=== PATIENT | female | born 1935 | race Caucasian/White ===

== ENCOUNTER 2020-08-30 13:05 | Outpatient (REF) | payer MEDICARE, SELFPAY ==
[2020-08-30 14:02] LABS: Hematocrit 36.6 % (37-47); Mean Corpuscular HGB Conc 32.8 g/dl (31.0-35.0); Mean Corpuscular Hemoglobin 29.6 pg (27.0-33.0); Mean Corpuscular Volume 90.1 fL (80-98); Mean Platelet Volume 10.3 fL (9.4-12.3); Platelet Count 225 X10*3/uL (160-400); Red Blood Count 4.06 X10*6/uL (4.20-5.50); Red Cell Distribution Width 13.5 % (11.0-16.0); White Blood Count 4.3 X10*3/uL (4.8-10.8)
[2020-08-30 14:27] LABS: Osmolality, Serum 292 mosm/kg (281-305)
[2020-08-30 14:36] LABS: Alanine Aminotransferase 15 U/L (0-31); Albumin Level 4.3 g/dL (3.5-5.0); Alkaline Phosphatase 72 U/L (39-117); Anion Gap 11 (12-20); Aspartate Amino Transferase 28 U/L (5-31); Bilirubin Total 0.6 mg/dL (0.0-1.0); Blood Urea Nitrogen 13 mg/dL (9-16); Carbon Dioxide 29 mmol/L (22-29); Chloride 98 mmol/L (96-108); Estimated Glomerular Filt Rate > 60; Glucose Random 115 mg/dL (60-115); Sodium 134 mmol/L (135-145)
== END 2020-08-30 13:06 | disposition home or self-care (01) ==
LOC: HO.HMGCLDS 13:05
PROVIDERS: PCP Internal Medicine; Visit Provider Internal Medicine
DX: D72.819 Decreased white blood cell count, unspecified (principal); I10 Essential (primary) hypertension; E87.1 Hypo-osmolality and hyponatremia
CPT/HCPCS: 36415; 80053; 83930; 85027

== ENCOUNTER 2020-10-10 10:26 | Outpatient (REF) | payer MEDICARE, SELFPAY ==
[2020-10-10 16:28] LABS: Albumin Level 4.2 g/dL (3.5-5.0); Anion Gap 12 (12-20); Blood Urea Nitrogen 20 mg/dL (9-16); Calcium 8.8 mg/dL (8.4-10.2); Carbon Dioxide 29 mmol/L (22-29); Chloride 99 mmol/L (96-108); Estimated Glomerular Filt Rate 60; Magnesium 2.2 mg/dL (1.6-2.6); Phosphorus 3.4 mg/dL (2.7-4.5); Potassium 4.7 mmol/l (3.3-5.1); Sodium 135 mmol/L (135-145); Uric Acid 3.7 mg/dL (2.4-5.7)
[2020-10-10 16:33] LABS: Osmolality, Serum 290 mosm/kg (281-305)
[2020-10-10 16:48] LABS: TSH reflex Free T4 1.94 mIU/mL (0.32-4.0)
[2020-10-10 16:55] LABS: Appearance Urine CLEAR; Color Urine YELLOW; Glucose Urine UA NEG (NEG); Leukocyte Esterase Urine NEG (NEG); Nitrite Urine NEG (NEG); Specific Gravity - Urine 1.015 (1.005-1.025); Urine Blood TRACE (NEG); Urine Ketones NEG (NEG); Urine Protein NEG (NEG-TRACE)
[2020-10-10 17:09] LABS: Osmolality Urine 504 mosm/kg (373-1093)
[2020-10-10 17:14] LABS: WBC Urine 0 /HPF (0-4)
[2020-10-10 18:46] LABS: Renal w Reflex Lab Use Only Order verified
== END 2020-10-10 10:27 | disposition home or self-care (01) ==
LOC: HO.HMGCLDS 10:26
PROVIDERS: PCP Internal Medicine; Visit Provider Internal Medicine Nephrology
DX: E87.1 Hypo-osmolality and hyponatremia (principal); I10 Essential (primary) hypertension
CPT/HCPCS: 80051; 81001; 82040; 82310; 82533; 82565; 83735; 83930; 83935; 84100; 84300; 84443; 84520; 84550

== ENCOUNTER 2021-02-13 12:26 | Outpatient (REF) | payer MEDICARE, SELFPAY ==
--- NOTE | ~2021-02-13 | MM_ITS ---
EXAMINATION: MM SCREENING DIGITAL BREAST TOMOSYNTHESIS, BILATERAL CLINICAL INFORMATION: Screening. Asymptomatic. The lifetime risk of breast cancer based on the Tyrer-Cuzick Model is 1%. COMPARISON: Mammography: 11/13/2019, 10/13/2018, 08/16/2017 TECHNIQUE: Digital breast tomosynthesis is performed in both the craniocaudal and mediolateral oblique views along with computer-aided detection (CAD). Synthesized 2D images are generated from the tomosynthesis. FINDINGS: The breasts are heterogeneously dense, which may obscure small masses (ACR BI-RADS breast composition Category c). There are no significant masses, abnormal calcifications, or other abnormalities. There are bilateral vascular and some scattered round coarse calcifications. Dermal lesion is again noted overlying the posterior upper outer left breast. MM/MM tomosynthesis screening BI IMPRESSION: No mammographic evidence of malignancy. ASSESSMENT: BI-RADS 2: Benign RECOMMENDATION: Routine annual mammography screening. This patient's information was entered into a reminder system with a target due date for their next mammogram.
== END 2021-02-13 12:27 | disposition home or self-care (01) ==
LOC: HO.MAMMO 12:26
PROVIDERS: Visit Provider Internal Medicine
DX: Z12.31 Encounter for screening mammogram for malignant neoplasm of breast (principal)
CPT/HCPCS: 77063; 77067

== ENCOUNTER 2021-02-15 10:27 | Outpatient (REF) | payer MEDICARE, SELFPAY ==
[2021-02-15 12:13] LABS: Anion Gap 13 (12-20); Blood Urea Nitrogen 22 mg/dL (9-16); Calcium 9.6 mg/dL (8.4-10.2); Carbon Dioxide 27 mmol/L (22-29); Chloride 96 mmol/L (96-108); Estimated Glomerular Filt Rate > 60; Phosphorus 4.4 mg/dL (2.7-4.5); Potassium 4.7 mmol/L (3.3-5.1); Sodium 131 mmol/L (135-145)
[2021-02-15 12:21] LABS: Renal w Reflex Lab Use Only Order verified
== END 2021-02-15 10:28 | disposition home or self-care (01) ==
LOC: HO.HMGCLR 10:27
PROVIDERS: PCP Internal Medicine; Visit Provider Internal Medicine Nephrology
DX: E87.1 Hypo-osmolality and hyponatremia (principal); I10 Essential (primary) hypertension
CPT/HCPCS: 36415; 80051; 82310; 82565; 84100; 84520

== ENCOUNTER 2021-05-12 09:32 | Outpatient (REF) | payer MEDICARE, SELFPAY ==
[2021-05-12 11:31] LABS: MANUAL DIFF FLAG NO
[2021-05-12 11:35] LABS: Basophils Absolute Auto 0.1 X10*3/uL (0.0-0.2); Basophils Percent Auto 1.2 % (0-2); Eosinophils Absolute Auto 0.1 X10*3/uL (0.0-0.4); Hemoglobin 11.3 g/dl (12.0-16.0); Imm Gran Abs Auto 0.01 X10*3/uL (0.00-0.03); Imm Gran Pct Auto 0.2 % (0.0-0.4); Lymphocytes Absolute Auto 1.2 X10*3/uL (1.2-4.9); Lymphocytes Percent Auto 29.8 % (20-40); Mean Corpuscular HGB Conc 32.3 g/dl (31.0-35.0); Mean Corpuscular Hemoglobin 28.6 pg (27.0-33.0); Mean Corpuscular Volume 88.6 fL (80-98); Monocytes Absolute Auto 0.3 X10*3/uL (0.1-1.2); Monocytes Percent Auto 6.4 % (2-11); Neutrophils Absolute Auto 2.5 X10*3/uL (2.0-8.3); Neutrophils Percent Auto 60.4 % (45-73); Platelet Count 189 X10*3/uL (160-400); Red Blood Count 3.95 X10*6/uL (4.20-5.50); Red Cell Distribution Width 13.3 % (11.0-16.0); White Blood Count 4.1 X10*3/uL (4.8-10.8)
[2021-05-12 11:51] LABS: Anion Gap 12 (12-20); Blood Urea Nitrogen 17 mg/dL (9-16); Calcium 9.5 mg/dL (8.4-10.2); Carbon Dioxide 25 mmol/L (22-29); Chloride 99 mmol/L (96-108); Estimated Glomerular Filt Rate > 60; Potassium 4.3 mmol/L (3.3-5.1); Sodium 132 mmol/L (135-145)
[2021-05-12 15:40] LABS: Glucose Urine UA NEG (NEG); Leukocyte Esterase Urine 1+ (NEG); Nitrite Urine NEG (NEG); Urine Blood NEG (NEG); Urine Ketones NEG (NEG); Urine Protein NEG (NEG-TRACE)
[2021-05-12 15:42] LABS: Appearance Urine CLEAR; Color Urine YELLOW
[2021-05-12 16:02] LABS: Bacteria Urine TRACE /LPF; Renal Epithelial Cells Urine TRACE /LPF; Squamous Epithelial Cell Urine TRACE /LPF
== END 2021-05-12 09:33 | disposition home or self-care (01) ==
LOC: HO.HMGCLDS 09:32
PROVIDERS: PCP Internal Medicine; Visit Provider Internal Medicine Hypertension Specialist
DX: N18.30 Chronic kidney disease, stage 3 unspecified (principal); N17.9 Acute kidney failure, unspecified
CPT/HCPCS: 36415; 80051; 81001; 82310; 82565; 84520; 85025

== ENCOUNTER 2021-06-07 09:57 | Outpatient (REF) | payer MEDICARE, SELFPAY ==
--- NOTE | ~2021-06-07 | US_ITS ---
EXAMINATION: US RETROPERITONEAL LIMITED (RENAL ONLY) CLINICAL INFORMATION: CKD stage 2. COMPARISON: Ultrasound kidneys 09/07/2019. Ultrasound kidneys and bladder 08/22/2018. X-ray abdomen 12/05/2015. CT abdomen and pelvis 12/04/2015. TECHNIQUE: Real-time imaging of the kidneys. FINDINGS: RIGHT KIDNEY: 11.6 x 4.3 x 4.9 cm (SAG x AP x TRV). The kidney is normal in size, contour, and echogenicity. Renal cortical thickness is normal. No renal calculi or hydronephrosis. There is anechoic cyst in the upper pole measuring 2.2 x 3.5 x 2.3 cm LEFT KIDNEY: 11.0 x 4.8 x 4.4 cm (SAG x AP x TRV). The kidney is normal in size, contour, and echogenicity. Renal cortical thickness is normal. No renal calculi or hydronephrosis. There is a complex cyst upper pole with echogenic debris measuring 4.0 x 3.6 x 4.3 cm. An extrarenal kidney pelvis is noted. US/US renal BI IMPRESSION: There is anechoic cyst in the upper pole right kidney and mild caliectasis. Complex cyst upper pole left kidney. There is an extrarenal left kidney pelvis.
== END 2021-06-07 09:58 | disposition home or self-care (01) ==
LOC: HO.HMGCX 09:57
PROVIDERS: PCP Internal Medicine; Visit Provider Internal Medicine Nephrology
DX: E87.1 Hypo-osmolality and hyponatremia (principal); I12.9 Hypertensive chronic kidney disease with stage 1 through stage 4 chronic kidney disease, or unspecified chronic kidney disease; N18.2 Chronic kidney disease, stage 2 (mild)
CPT/HCPCS: 76775

== ENCOUNTER 2021-10-12 15:01 | Outpatient (REF) | payer MEDICARE, SELFPAY ==
[2021-10-12 16:53] LABS: Anion Gap 11 (12-20); Blood Urea Nitrogen 21 mg/dL (9-16); Calcium 9.3 mg/dL (8.4-10.2); Carbon Dioxide 27 mmol/L (22-29); Chloride 100 mmol/L (96-108); Estimated Glomerular Filt Rate > 60; Potassium 4.4 mmol/L (3.3-5.1); Sodium 134 mmol/L (135-145)
== END 2021-10-12 15:02 | disposition home or self-care (01) ==
LOC: HO.HMGCLDS 15:01
PROVIDERS: PCP Internal Medicine; Visit Provider Internal Medicine Nephrology
DX: I12.9 Hypertensive chronic kidney disease with stage 1 through stage 4 chronic kidney disease, or unspecified chronic kidney disease (principal); E87.1 Hypo-osmolality and hyponatremia; N18.2 Chronic kidney disease, stage 2 (mild)
CPT/HCPCS: 36415; 80051; 82310; 82565; 84520

== ENCOUNTER 2021-12-11 10:52 | Outpatient (REF) | payer MEDICARE, SELFPAY ==
--- NOTE | ~2021-12-11 | US_ITS ---
EXAMINATION: US RETROPERITONEAL LIMITED (RENAL ONLY) CLINICAL INFORMATION: Renal cyst. COMPARISON: Renal ultrasound 06/07/2021 and 09/07/2019. TECHNIQUE: Real-time imaging of the kidneys. Technically difficult study secondary to body habitus. FINDINGS: RIGHT KIDNEY: 11.3 x 3.8 x 5.1 cm (SAG x AP x TRV). The kidney is normal in size, contour, and echogenicity. Renal cortical thickness is normal. No renal calculi. There is an anechoic cyst in the upper pole measuring 2.2 x 2.5 x 2.5 cm. There is hydronephrosis and hydroureter involving the proximal and mid ureter with no echogenic stones seen in the ureter. LEFT KIDNEY: 11.3 x 4.6 x 4.8 cm (SAG x AP x TRV). The kidney is normal in size, contour, and echogenicity. Renal cortical thickness is normal. No renal calculi or hydronephrosis. There is an anechoic cyst with septation in the upper pole measuring 4.2 x 4.6 x 4.2 cm. There is no extrarenal kidney pelvis seen. ADDITIONAL FINDINGS: There are normal bilateral ureteral jets seen in the bladder. US/US renal BI IMPRESSION: Moderate right renal hydronephrosis and hydroureter with no obstructive echogenic stones seen on the present images. Anechoic cyst with septation upper pole left kidney. There is an extrarenal pelvis seen on the present exam.
== END 2021-12-11 10:53 | disposition home or self-care (01) ==
LOC: HO.US 10:52
PROVIDERS: Visit Provider Internal Medicine
DX: N28.1 Cyst of kidney, acquired (principal)
CPT/HCPCS: 76775

== ENCOUNTER 2021-12-19 14:07 | Outpatient (REF) | payer MEDICARE, SELFPAY ==
[2021-12-19 16:44] LABS: Anion Gap 10 (12-20); Blood Urea Nitrogen 14 mg/dL (9-16); Calcium 9.7 mg/dL (8.4-10.2); Carbon Dioxide 30 mmol/L (22-29); Chloride 99 mmol/L (96-108); Estimated Glomerular Filt Rate 60; Potassium 4.2 mmol/L (3.3-5.1); Sodium 135 mmol/L (135-145)
== END 2021-12-19 14:08 | disposition home or self-care (01) ==
LOC: HO.HMGCLDS 14:07
PROVIDERS: Visit Provider Internal Medicine Nephrology
DX: E87.1 Hypo-osmolality and hyponatremia (principal); I10 Essential (primary) hypertension; N18.2 Chronic kidney disease, stage 2 (mild)
CPT/HCPCS: 36415; 80051; 82310; 82565; 84520

== ENCOUNTER 2022-02-14 12:56 | Outpatient (REF) | payer MEDICARE, SELFPAY ==
--- NOTE | ~2022-02-14 | MM_ITS ---
EXAMINATION: MM SCREENING DIGITAL BREAST TOMOSYNTHESIS, BILATERAL CLINICAL INFORMATION: Screening. Asymptomatic. The lifetime risk of breast cancer based on the Tyrer-Cuzick Model is 820%. COMPARISON: Mammography: 02/13/2021, 11/13/2019, 10/13/2018 TECHNIQUE: Digital breast tomosynthesis is performed in both the craniocaudal and mediolateral oblique views along with computer-aided detection (CAD). Synthesized 2D images are generated from the tomosynthesis. Additional right MLO view is provided. FINDINGS: The breasts are heterogeneously dense, which may obscure small masses (ACR BI-RADS breast composition Category c). There are no significant masses, abnormal calcifications, or other abnormalities. There is a fibronodular parenchymal pattern similar to prior studies. Scattered vascular calcifications are again seen. There is digital processing artifact in the anterior right breast on MLO synthesized view. Dermal lesion again seen overlying posterior upper left breast. There are no significant changes. MM/MM tomosynthesis screening BI IMPRESSION: No mammographic evidence of malignancy. ASSESSMENT: BI-RADS 2: Benign RECOMMENDATION: Routine annual mammography screening. This patient's information was entered into a reminder system with a target due date for their next mammogram.
== END 2022-02-14 12:57 | disposition home or self-care (01) ==
LOC: HO.MAMMO 12:56
PROVIDERS: PCP Internal Medicine; Visit Provider Internal Medicine
DX: Z12.31 Encounter for screening mammogram for malignant neoplasm of breast (principal)
CPT/HCPCS: 77063; 77067

== ENCOUNTER 2022-06-25 09:39 | Outpatient (REF) | payer MEDICARE, SELFPAY ==
[2022-06-25 11:26] LABS: Appearance Urine Clear; Color Urine Yellow; Glucose Urine UA Negative (Negative); Leukocyte Esterase Urine Trace (Negative); Nitrite Urine Negative (Negative); Urine Blood Trace (Negative); Urine Ketones Negative (Negative); Urine Protein Negative (Neg-Trace)
[2022-06-25 11:30] LABS: Bacteria Urine None Seen (None Seen); Hyaline Casts Urine 0-2 /LPF (0-2); Squamous Epithelial Cell Urine 0-2 /HPF (0-2); WBC Urine 0-5 /HPF (0-5)
[2022-06-25 11:56] LABS: Anion Gap 13 (12-20); Blood Urea Nitrogen 12 mg/dL (9-16); Calcium 9.2 mg/dL (8.4-10.2); Carbon Dioxide 27 mmol/L (22-29); Chloride 96 mmol/L (96-108); Estimated Glomerular Filt Rate > 60; Potassium 4.4 mmol/L (3.3-5.1); Sodium 132 mmol/L (135-145)
[2022-06-25 12:11] LABS: Creatinine Urine 31.69 mg/dL; Microalbum/Creatinine Ratio Ur 28.4 ug/mg cr; Total Protein Urine Random < 7 mg/dL (<12)
== END 2022-06-25 09:40 | disposition home or self-care (01) ==
LOC: HO.HMGCLDS 09:39
PROVIDERS: PCP Internal Medicine; Visit Provider Internal Medicine Nephrology
DX: E87.1 Hypo-osmolality and hyponatremia (principal); I12.9 Hypertensive chronic kidney disease with stage 1 through stage 4 chronic kidney disease, or unspecified chronic kidney disease; N18.2 Chronic kidney disease, stage 2 (mild)
CPT/HCPCS: 36415; 80051; 81001; 82043; 82310; 82565; 84156; 84520

== ENCOUNTER 2022-09-24 13:35 | Outpatient (REF) | payer MEDICARE, SELFPAY ==
[2022-09-24 16:34] LABS: Anion Gap 13 (12-20); Blood Urea Nitrogen 12 mg/dL (9-16); Calcium 9.5 mg/dL (8.4-10.2); Carbon Dioxide 29 mmol/L (22-29); Chloride 96 mmol/L (96-108); Estimated Glomerular Filt Rate > 60; Glucose Random 74 mg/dL (60-115); Sodium 134 mmol/L (135-145)
== END 2022-09-24 13:36 | disposition home or self-care (01) ==
LOC: HO.HMGCLDS 13:35
PROVIDERS: PCP Internal Medicine; Visit Provider Internal Medicine
DX: E87.1 Hypo-osmolality and hyponatremia (principal)
CPT/HCPCS: 36415; 80048

== ENCOUNTER 2022-11-04 12:05 | Observation (INO) | payer MEDICARE, SELFPAY ==
--- NOTE | ~2022-11-04 | CT_ITS ---
EXAMINATION: CT ANGIOGRAM NECK WITH CONTRAST CT ANGIOGRAM BRAIN WITH CONTRAST CLINICAL INFORMATION: 2 episodes of transient neurologic deficit. COMPARISON: Head CT November 04, 2022. TECHNIQUE: Test bolus sequences followed by intravenous administration 100 mL of Omnipaque 350. Helical imaging was performed in the axial plane from the thoracic inlet to the skull vertex. Delayed postcontrast imaging of the head was also performed. The data was processed at the extractions technologist workstation for generation of MIP sequences. Angled MIPs and volume rendered reformatted images were also generated at an offline 3D workstation. Stenoses are assessed in accordance with NASCET criteria unless otherwise indicated. This CT examination was performed using dose optimization techniques as appropriate, variously including the following: *Automated exposure control *Adjustment of mA and/or kV according to patient size (this includes techniques or standardized protocols for targeted exams where dose is matched to indication/reason for exam; i.e. extremities or head) *Use of iterative reconstruction technique DLP: 1443 mGy-cm FINDINGS: Head CT: There is no intracranial hemorrhage, extra-axial collection, mass effect, or territorial infarction. Background changes of moderate chronic microangiopathy and mild brain parenchymal volume loss are noted. There is no abnormal enhancement. The dural venous sinuses are normally opacified. The extracranial structures are within normal limits. Neck CTA: The visualized great vessels are patent. Atheromatous changes are seen at the carotid bifurcations without significant stenosis of the proximal internal carotid arteries. 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 Both vertebral arteries appear patent although reflux of venous contrast limits evaluation of the right-sided vertebral artery. Head CTA: The anterior and posterior circulations appear patent. There is -type disposition of both hematology technologist. No intracranial aneurysm is seen. Non-vascular findings: No consolidation is seen within the upper lungs. There is a left chest wall pacemaker. Multilevel degenerative changes are seen within the spine. Advanced degenerative changes are seen at the temporomandibular joints. CT/CT angio head neck IMPRESSION: CT HEAD: No intracranial hemorrhage or large acute infarction. Background changes of chronic microangiopathy. CTA NECK: No hemodynamically significant stenosis in the major arteries of the neck. 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 CTA HEAD: No large vessel occlusion or significant stenosis within the intracranial circulation.
--- NOTE | ~2022-11-04 | CT_ITS ---
EXAMINATION: CT HEAD WITHOUT CONTRAST CLINICAL INFORMATION: Visual changes, dizziness since yesterday 4:00 PM. COMPARISON: None. TECHNIQUE: Contiguous axial imaging was performed from the skull base to vertex without intravenous administration of contrast. This CT examination was performed using dose optimization techniques as appropriate, variously including the following: *Automated exposure control *Adjustment of mA and/or kV according to patient size (this includes techniques or standardized protocols for targeted exams where dose is matched to indication/reason for exam; i.e. extremities or head) *Use of iterative reconstruction technique DLP: 631 mGy-cm. FINDINGS: There is no intracranial hemorrhage, large infarction, or mass lesion. There is no extra-axial collection. The ventricles are normal in size and configuration without evidence of hydrocephalus. Patchy hypoattenuation is seen within the cerebral white matter, typical of chronic microangiopathy. The visualized paranasal sinuses and mastoid air cells are clear. CT/CT head/brain wo IV con IMPRESSION: No acute intracranial abnormality.
--- NOTE | ~2022-11-04 | XR_ITS ---
EXAMINATION: XR CHEST CLINICAL INFORMATION: Visualized changes. Difficulty with words. COMPARISON: Chest x-rays every 2015 TECHNIQUE: 2 views of the chest were obtained. FINDINGS: Cardiac silhouette is normal in size. Dual-lead pacemaker noted. The lungs are hyperinflated. No gross lobar consolidation. No pleural effusion or pneumothorax. Moderate degenerative changes of the spine. Partially visualized hardware of the spine. XR/XR chest 2V IMPRESSION: Emphysematous changes of the lungs without acute pulmonary pathology.
--- NOTE | 2022-11-04 12:10 | ED_ITS ---
HPI - General Adult General Chief complaint: Neuro Symptoms/Deficit Stated complaint: Not Feeling Well Time Seen by Provider: 11/04/22 12:37 Related Data Home Medications Medication Instructions Recorded Confirmed acetaminophen 325 mg tablet 650 mg PO Q4H PRN Pain 11/04/22 11/04/22 apixaban 2.5 mg tablet (Eliquis) 1 tab PO BID 11/04/22 11/04/22 calcium carbonate 600 mg-vitamin 1 tab PO DAILY 11/04/22 11/04/22 D3 10 mcg (400 unit) tablet (Calcium 600 + D(3)) cholecalciferol (vitamin D3) 25 25 mcg PO DAILY 11/04/22 11/04/22 mcg (1,000 unit) capsule (Vitamin D3) multivitamin 1 tab PO QAM 11/04/22 11/04/22 pantoprazole 40 mg tablet,delayed 1 tab PO BID 11/04/22 11/04/22 release polyethylene glycol 3350 17 gram 17 g PO DAILY 11/04/22 11/04/22 oral powder packet (Miralax) pramipexole 0.125 mg tablet 1 tab PO BEDTIME 11/04/22 11/04/22 sennosides 8.6 mg tablet (senna) 17.2 mg PO BEDTIME 11/04/22 11/04/22 tamsulosin 0.4 mg capsule 1 cap PO BEDTIME 11/04/22 11/04/22 Previous Rx's Medication Instructions Recorded atorvastatin 40 mg tablet 40 mg PO BEDTIME #30 tabs 11/07/22 Allergies Allergy/AdvReac Type Severity Reaction Status Date / Time No Known Allergies Allergy Unverified 07/14/20 15:16 [No Known Allergies*] [facility] Social History Social History (Updated 11/04/22 @ 17:05 by Gene Trent MD) Household Members: None Housing: House Do you presently have visiting nurse or other home services: No Alcohol intake: never Patient Tobacco Use Status: Never used Tobacco service: No Physical Exam ED Vital Signs: BMI result Body Mass Index 24.7 Course Course Course Narrative: RME-12:10PM - 87yo c 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 Reports that she was at mass doing the 1st reading and all of a sudden her vision change and she saw everything dark she reports that lasted a few seconds and she was able to read. Although this morning and happen again. She reports associated excessive burping. On Exam pt hypertensive 171/112. She is Alert to person, place and time. Cant not remember the president. Noted to have mild right facial droop although patient recently had right facial surgery therefore hard to tell and 4/5 strength to RUE. Otherwise normal strength all other extremities. Normal steady gait. Otherwise no other neuro deficits are noted. Plan: Labs, EKG, COVID/RSV/flu, chest x-ray and CT scan of brain without contrast ordered at this time. Medications Administered Discontinued Medications Generic Name Dose Route Start Last Admin Trade Name Obey PRN Reason Stop Dose Admin Amlodipine Besylate 5 mg 11/04/22 16:25 11/04/22 17:19 Amlodipine Besylate 5 Mg Tablet PO 11/04/22 16:26 5 mg ONCE ONE Administration Protocol Apixaban 2.5 mg 11/04/22 21:00 11/07/22 08:10 Apixaban 2.5 Mg Tablet PO 2.5 mg BID TRACIE Administration Aspirin 81 mg 11/04/22 16:25 11/04/22 17:19 Aspirin Enteric Coated 81 Mg Tablet.Dr FIORE 11/04/22 16:26 81 mg ONCE ONE Administration Aspirin 81 mg 11/06/22 09:00 11/07/22 08:09 Aspirin Enteric Coated 81 Mg Tablet.Dr FIORE 81 mg DAILY TRACIE Administration Iohexol 100 ml 11/05/22 17:55 11/05/22 17:56 Iohexol 350 Mg/Ml 100 Ml Infus..Btl IV 11/05/22 17:56 70 ml ONCE ONE Administration Multivitamins/Vitamin C 1 tab 11/05/22 09:00 11/07/22 08:10 Multivitamin Tablet PO 1 tab DAILY TRACIE Administration Omeprazole 40 mg 11/05/22 16:30 11/07/22 06:09 Omeprazole 40 Mg Capsule.Dr FIORE 40 mg BID@0630,1630 TRACIE Administration Polyethylene Glycol 17 gm 11/05/22 09:00 11/07/22 08:10 Polyethylene Glycol 3350 17 Gm Powd.Pack PO 17 gm DAILY TRACIE Administration Pramipexole Dihydrochloride 0.125 mg 11/04/22 21:00 11/06/22 20:15 Pramipexole Di-Hcl 0.125 Mg Tablet PO 0.125 mg BEDTIME TRACIE Administration Senna 17.2 mg 11/05/22 21:00 11/06/22 20:15 Sennosides 8.6 Mg Tablet PO 17.2 mg BEDTIME TRACIE Administration Sodium Chloride 3 ml 11/05/22 00:00 11/07/22 08:10 0.9 % Sodium Chloride Flush 3 Ml Syringe IVFLUSH 3 ml QSHIFT TRACIE Administration Tamsulosin HCl 0.4 mg 11/04/22 21:00 11/06/22 20:15 Tamsulosin Hcl 0.4 Mg Capsule PO 0.4 mg BEDTIME TRACIE Administration Vitamin D 25 mcg 11/05/22 09:00 11/07/22 08:10 Cholecalciferol (Vitamin D3) 25 Mcg Tablet PO 25 mcg DAILY TRACIE Administration Medical Decision Making Lab Data 11/04/22 12:35 11/04/22 12:35 Labs: Lab Results 11/04/22 11/04/22 11/04/22 Range/Units 12:35 12:35 12:35 WBC 5.0 (4.8-10.8) X10*3/uL RBC 4.31 (4.20-5.50) X10*6/uL Hgb 12.6 (12.0-16.0) g/dl Hct 37.4 (37.0-47.0) % MCV 86.8 (80.0-98.0) fL MCH 29.2 (27.0-33.0) pg MCHC 33.7 (31.0-35.0) g/dl RDW 13.1 (11.0-16.0) % Plt Count 247 (160-400) X10*3/uL MPV 9.4 (9.4-12.3) fL Immature Gran % (Auto) 0.4 (0.0-0.4) % Neut % (Auto) 77.4 H (45-73) % Lymph % (Auto) 14.3 L (20-40) % [place] % (Auto) 6.1 (2-11) % Eos % (Auto) 0.6 (0-4) % Baso % (Auto) 1.2 (0-2) % Lymph # (Auto) 0.7 L (1.2-4.9) X10*3/uL [place] # (Auto) 0.3 (0.1-1.2) X10*3/uL Eos # (Auto) 0.0 (0.0-0.4) X10*3/uL Baso # (Auto) 0.1 (0.0-0.2) X10*3/uL Abs Immat Gran (auto) 0.02 (0.00-0.03) X10*3/uL Absolute Neuts (auto) 3.8 (2.0-8.3) x10*3/uL Absolute Nucleated RBC 0.000 (0.0-0.012) X10*3/uL Nucleated RBC % (auto) 0.0 (0.0-0.2) /100WBC PT 11.4 (10.0-13.1) SEC INR 1.0 (0.9-1.1) Sodium 135 (135-145) mmol/L Potassium 3.9 (3.3-5.1) mmol/L Chloride 101 (96-108) mmol/L Carbon Dioxide 25 (22-29) mmol/L Anion Gap 13 (12-20) BUN 12 (9-16) mg/dL Creatinine 0.77 (0.5-1.4) mg/dL Estim Creat Clear Calc 42.4 Estimated GFR > 60 Random Glucose 105 (60-115) mg/dL Calcium 9.9 (8.4-10.2) mg/dL Magnesium 1.9 (1.6-2.6) mg/dL Total Bilirubin 0.4 (0.0-1.0) mg/dL AST 27 (5-31) U/L ALT 17 (0-31) U/L Alkaline Phosphatase 85 (39-117) U/L Troponin I High Sens (<3.5-17.0) ng/L Total Protein 7.2 (6.5-8.0) g/dL Albumin 4.4 (3.5-5.0) g/dL Urine Color Urine Appearance Urine pH (5.0-9.0) Ur Specific [place] (1.005-1.025) Urine Protein (Neg-Trace) mg/dL Urine Glucose (UA) (Negative) mg/dL Urine Ketones (Negative) mg/dL Urine Blood (Negative) Urine Nitrite (Negative) Ur Leukocyte Esterase (Negative) Urine RBC (0-2) /HPF Urine WBC (0-5) /HPF Ur Squamous Epith Cells (0-2) /HPF Urine Bacteria (None Seen) Hyaline Casts (0-2) /LPF Influenza Type A (PCR) (Negative) Influenza Type B (PCR) (Negative) RSV RNA Qual (PCR) (Negative) SARS-CoV-2 RNA (RT-PCR) (Negative) 11/04/22 11/04/22 11/04/22 Range/Units 12:35 12:35 13:50 WBC (4.8-10.8) X10*3/uL RBC (4.20-5.50) X10*6/uL Hgb (12.0-16.0) g/dl Hct (37.0-47.0) % MCV (80.0-98.0) fL MCH (27.0-33.0) pg MCHC (31.0-35.0) g/dl RDW (11.0-16.0) % Plt Count (160-400) X10*3/uL MPV (9.4-12.3) fL Immature Gran % (Auto) (0.0-0.4) % Neut % (Auto) (45-73) % Lymph % (Auto) (20-40) % [place] % (Auto) (2-11) % Eos % (Auto) (0-4) % Baso % (Auto) (0-2) % Lymph # (Auto) (1.2-4.9) X10*3/uL [place] # (Auto) (0.1-1.2) X10*3/uL Eos # (Auto) (0.0-0.4) X10*3/uL Baso # (Auto) (0.0-0.2) X10*3/uL Abs Immat Gran (auto) (0.00-0.03) X10*3/uL Absolute Neuts (auto) (2.0-8.3) x10*3/uL Absolute Nucleated RBC (0.0-0.012) X10*3/uL Nucleated RBC % (auto) (0.0-0.2) /100WBC PT (10.0-13.1) SEC INR (0.9-1.1) Sodium (135-145) mmol/L Potassium (3.3-5.1) mmol/L Chloride (96-108) mmol/L Carbon Dioxide (22-29) mmol/L Anion Gap (12-20) BUN (9-16) mg/dL Creatinine (0.5-1.4) mg/dL Estim Creat Clear Calc Estimated GFR Random Glucose (60-115) mg/dL Calcium (8.4-10.2) mg/dL Magnesium (1.6-2.6) mg/dL Total Bilirubin (0.0-1.0) mg/dL AST (5-31) U/L ALT (0-31) U/L Alkaline Phosphatase (39-117) U/L Troponin I High Sens < 3.5 (<3.5-17.0) ng/L Total Protein (6.5-8.0) g/dL Albumin (3.5-5.0) g/dL Urine Color Yellow Urine Appearance Clear Urine pH 7.5 (5.0-9.0) Ur Specific [place] <= 1.005 (1.005-1.025) Urine Protein Negative (Neg-Trace) mg/dL Urine Glucose (UA) Negative (Negative) mg/dL Urine Ketones Negative (Negative) mg/dL Urine Blood Trace H (Negative) Urine Nitrite Negative (Negative) Ur Leukocyte Esterase Trace H (Negative) Urine RBC 3-5 H (0-2) /HPF Urine WBC 0-5 (0-5) /HPF Ur Squamous Epith Cells 0-2 (0-2) /HPF Urine Bacteria None Seen (None Seen) Hyaline Casts 0-2 (0-2) /LPF Influenza Type A (PCR) NEGATIVE (Negative) Influenza Type B (PCR) NEGATIVE (Negative) RSV RNA Qual (PCR) NEGATIVE (Negative) SARS-CoV-2 RNA (RT-PCR) NEGATIVE (Negative) Discharge Plan Discharge Clinical Impression: TIA (transient ischemic attack) Patient Disposition: Admitted As Inpatient Interventions: Admission Worksheet (ED) Last Done: 11/05/22 08:58 Discharge Date/Time: 11/05/22 08:59
[2022-11-04 12:11] VITALS: BP 171/112; PULSE 96; RESP 16; TEMP 36.4; O2SAT 97; BMI 24.7
--- NOTE | 2022-11-04 12:15 | ECG_ITS ---
Test Reason : AMS Blood Pressure : / mmHG Vent. Rate : 076 BPM Atrial Rate : 076 BPM P-R Int : 138 ms QRS Dur : 128 ms QT Int : 416 ms P-R-T Axes : 041 004 024 degrees QTc Int : 468 ms Normal sinus rhythm Right bundle branch block Abnormal ECG No previous ECGs available Referred By: Lila Ho Electronically Signed By:Dannie Abernathy
[2022-11-04 12:40] LABS: MANUAL DIFF FLAG NO
[2022-11-04 12:42] LABS: Basophils Absolute Auto 0.1 X10*3/uL (0.0-0.2); Basophils Percent Auto 1.2 % (0-2); Eosinophils Percent Auto 0.6 % (0-4); Hematocrit 37.4 % (37.0-47.0); Hemoglobin 12.6 g/dl (12.0-16.0); Imm Gran Abs Auto 0.02 X10*3/uL (0.00-0.03); Imm Gran Pct Auto 0.4 % (0.0-0.4); Lymphocytes Absolute Auto 0.7 X10*3/uL (1.2-4.9); Lymphocytes Percent Auto 14.3 % (20-40); Mean Corpuscular HGB Conc 33.7 g/dl (31.0-35.0); Mean Corpuscular Hemoglobin 29.2 pg (27.0-33.0); Mean Corpuscular Volume 86.8 fL (80.0-98.0); Mean Platelet Volume 9.4 fL (9.4-12.3); Monocytes Absolute Auto 0.3 X10*3/uL (0.1-1.2); Monocytes Percent Auto 6.1 % (2-11); Neutrophils Absolute Auto 3.8 x10*3/uL (2.0-8.3); Neutrophils Percent Auto 77.4 % (45-73); Platelet Count 247 X10*3/uL (160-400); Red Blood Count 4.31 X10*6/uL (4.20-5.50); Red Cell Distribution Width 13.1 % (11.0-16.0)
[2022-11-04 12:47] LABS: Prothrombin Time 11.4 SEC (10.0-13.1)
[2022-11-04 12:57] LABS: Alanine Aminotransferase 17 U/L (0-31); Albumin Level 4.4 g/dL (3.5-5.0); Alkaline Phosphatase 85 U/L (39-117); Anion Gap 13 (12-20); Aspartate Amino Transferase 27 U/L (5-31); Bilirubin Total 0.4 mg/dL (0.0-1.0); Blood Urea Nitrogen 12 mg/dL (9-16); Calcium 9.9 mg/dL (8.4-10.2); Carbon Dioxide 25 mmol/L (22-29); Chloride 101 mmol/L (96-108); Creatinine Clr Calc Pharmacy 42.4; Estimated Glomerular Filt Rate > 60; Glucose Random 105 mg/dL (60-115); Magnesium 1.9 mg/dL (1.6-2.6); Potassium 3.9 mmol/L (3.3-5.1); Sodium 135 mmol/L (135-145); Total Protein 7.2 g/dL (6.5-8.0)
[2022-11-04 13:04] LABS: Troponin-I High Sensitivity < 3.5 ng/L (<3.5-17.0)
[2022-11-04 13:17] LABS: Influenza A PCR NEGATIVE (Negative); Influenza B PCR NEGATIVE (Negative); Resp Syncy Virus RNA Qual PCR NEGATIVE (Negative); SARS COV2 PCR INHOUSE NEGATIVE (Negative)
--- NOTE | 2022-11-04 13:35 | ED_ITS ---
HPI - General Adult General Chief complaint: Neuro Symptoms/Deficit Stated complaint: Not Feeling Well Time Seen by Provider: 11/04/22 12:37 Source: patient Mode of arrival: ambulatory Limitations: no limitations History of Present Illness HPI narrative: 87 yold female with pmh of GeRD and sick sinus syndrome with pacemaker presents to the ED for resolved loss of words that occured tiwce. patient states yesterday while at [employer] in the morning she was reading a prior and all the sudden she had a loss for words and lost vision in both eyes and resolved on its own. Patient denies falling to the ground or passing out. Patient denied any other neuro symptoms. Patient states once again this morning at 10:00 at synagogue was reading a prayer and had lost for worse that resolved within 10 minutes. At that time patient denies any loss of vision, slurred speech, facial droop, or paralysis of extremities. Patient presently asymptomatic came to the ED for evaluation. Related Data Home Medications Medication Instructions Recorded Confirmed acetaminophen 325 mg tablet 650 mg PO Q4H PRN Pain 11/04/22 11/04/22 apixaban 2.5 mg tablet (Eliquis) 1 tab PO BID 11/04/22 11/04/22 calcium carbonate 600 mg-vitamin 1 tab PO DAILY 11/04/22 11/04/22 D3 10 mcg (400 unit) tablet (Calcium 600 + D(3)) cholecalciferol (vitamin D3) 25 25 mcg PO DAILY 11/04/22 11/04/22 mcg (1,000 unit) capsule (Vitamin D3) multivitamin 1 tab PO QAM 11/04/22 11/04/22 pantoprazole 40 mg tablet,delayed 1 tab PO BID 11/04/22 11/04/22 release polyethylene glycol 3350 17 gram 17 g PO DAILY 11/04/22 11/04/22 oral powder packet (Miralax) pramipexole 0.125 mg tablet 1 tab PO BEDTIME 11/04/22 11/04/22 sennosides 8.6 mg tablet (senna) 17.2 mg PO BEDTIME 11/04/22 11/04/22 tamsulosin 0.4 mg capsule 1 cap PO BEDTIME 11/04/22 11/04/22 Allergies Allergy/AdvReac Type Severity Reaction Status Date / Time No Known Allergies Allergy Unverified 07/14/20 15:16 [No Known Allergies*] Review of Systems Review of Systems: Resolved loss of words. Resolved loss of visions. patient presentluy asympomtatic [facility] Social History Social History (Updated 11/04/22 @ 17:05 by Gene Trent MD) Alcohol intake: never Patient Tobacco Use Status: Never used Tobacco Smoked in Last 30 Days: No Use of substances other than those prescribed or required for medical reasons: No Advance Directives: No Advance Directives Information Provided: Yes Physical Exam ED Vital Signs: Vital Signs - 24 hr 11/04/22 12:11 11/04/22 13:46 Temperature 97.5 F 98.0 F Pulse Rate 96 74 Respiratory Rate 16 16 Blood Pressure 171/112 H 186/95 H Pulse Oximetry 97 98 Oxygen Delivery Method Room Air Room Air BMI result Body Mass Index 24.7 Const General: cooperative, healthy appearing, comfortable, no acute distress, well developed, alert and awake Orientation/consciousness: oriented to person, oriented to place, oriented to time and patient oriented x3 HENMT Head: Yes normal to inspection, Yes No palpable skull fracture present, Yes normocephalic, Yes atraumatic and No abrasion Eyes General: appearance normal, both eyes and all related structures Neck Neck: Yes normal visual inspection, Yes full ROM, Yes no lymphadenopathy, Yes no meningeal signs, Yes trachea midline, Yes supple, No anterior neck swelling and No tender Chest Chest palpation & inspection: normal inspection of the chest and normal palpation of entire chest wall Resp Effort & Inspection: normal respiratory effort and able to speak in complete sentences Auscultation: clear to auscultation bilaterally Cardio Jugular venous distension: no JVD Heart sounds: S1 normal heart sound present and S2 normal heart sound present GI Inspection: Yes normal to inspection and No abdominal wall ecchymosis Palpation (GI): Soft to palpation, not firm, nontender, no guarding and not rigid General: No CVA tenderness and Yes no CVA tenderness Back/Spine/Pelvis Back: no CVA tenderness, No CVA tenderness and No back tenderness Skin General skin exam: no rashes or lesions noted and elasticity normal Neuro Other: Negative facial droop. Negative slurred speech. Negative pronator drift. Al l extremities equal strength 5+. [id number] rapid hand movement intact. Negative Romberg. General: oriented to person, oriented to place, oriented to time, patient oriented x3, gait normal, tone normal, moves all extremities, Normal light touch and pain sensation, no meningeal signs, no focal motor deficits and CN's II-XI intact bilaterally NIH Stroke Scale Internal: Initial- Upon Arrival Level of Consciousness: Alert Level of Consciousness Questions: Answers both questions correctly Level of Consciousness Commands: Performs both tasks correctly Best Gaze: Normal Visual: No visual loss Facial Palsy: Normal Motor Arm (Right): No drift Motor Arm (Left): No drift Motor Leg (Right): No drift Motor Leg (Left): No drift Limb Ataxia: Absent Sensory: Normal Best Language: No aphasia Dysarthia: Normal Extinction and Inattention: No abnormality Score: 0 Course Course Course Narrative: Patient presently asymptomatic. NIH score 0. Case discussed with Dr. Costello who deos not recommned calling code stroke, but patient should still receive and dry CT scan and be admitted for TIA. Does not recomend neck and head CTA. Patient presently not candidate for TPA. patient is on blood thinner. not suspectic large clot in neck. EKG and labs ordered Medications Administered Generic Name Dose Route Start Last Admin Trade Name Freq PRN Reason Stop Dose Admin Apixaban 2.5 mg 11/04/22 21:00 11/05/22 07:33 Apixaban 2.5 Mg Tablet PO 2.5 mg BID TRACIE Administration Multivitamins/Vitamin C 1 tab 11/05/22 09:00 11/05/22 07:33 Multivitamin Tablet PO 1 tab DAILY TRACIE Administration Polyethylene Glycol 17 gm 11/05/22 09:00 11/05/22 07:33 Polyethylene Glycol 3350 17 Gm Powd.Pack PO 17 gm DAILY TRACIE Administration Pramipexole Dihydrochloride 0.125 mg 11/04/22 21:00 11/04/22 21:25 Pramipexole Di-Hcl 0.125 Mg Tablet PO 0.125 mg BEDTIME TRACIE Administration Sodium Chloride 3 ml 11/05/22 00:00 11/05/22 07:34 0.9 % Sodium Chloride Flush 3 Ml Syringe IVFLUSH 3 ml QSHIFT TRACIE Administration Tamsulosin HCl 0.4 mg 11/04/22 21:00 11/04/22 21:25 Tamsulosin Hcl 0.4 Mg Capsule PO 0.4 mg BEDTIME TRACIE Administration Vitamin D 25 mcg 11/05/22 09:00 11/05/22 07:33 Cholecalciferol (Vitamin D3) 25 Mcg Tablet PO 25 mcg DAILY TRACIE Administration Discontinued Medications Generic Name Dose Route Start Last Admin Trade Name Obey PRN Reason Stop Dose Admin Amlodipine Besylate 5 mg 11/04/22 16:25 11/04/22 17:19 Amlodipine Besylate 5 Mg Tablet PO 11/04/22 16:26 5 mg ONCE ONE Administration Protocol Aspirin 81 mg 11/04/22 16:25 11/04/22 17:19 Aspirin Enteric Coated 81 Mg Tablet.Dr FIORE 11/04/22 16:26 81 mg ONCE ONE Administration Medical Decision Making Medical Decision Making MDM Narrative: 87-year-old female with pmh of sick sinus syndrome and pace maker presents to the ED for 2 episodes of resolved word loss. Patient is presently asymptomatic. Will get medical evaluation glued head CT scan. Code stroke not called because patient symptoms resolved and is out the window. Not suspecting large clot in neck. Presently no neuro deficits. Patient is on blood thinners Differential Diagnosis Differential Diagnoses: The differential diagnosis associated with the presentation includes (Stroke. Mi) Admission/Observation Consideration of admission/observation: Escalation of care including admission/observation considered (Patient to be admitted for TIA.) Consult Healthcare Provider Management of the patient was discussed with: Hospitalist (Dr. Trent) Recommended admission for neuro consult in morning. Lab Data [facility] Lab Attestation statement: I reviewed the patient's lab results. 11/04/22 12:35 11/04/22 12:35 Labs: Lab Results 11/04/22 11/04/22 11/04/22 Range/Units 12:35 12:35 12:35 WBC 5.0 (4.8-10.8) X10*3/uL RBC 4.31 (4.20-5.50) X10*6/uL Hgb 12.6 (12.0-16.0) g/dl Hct 37.4 (37.0-47.0) % MCV 86.8 (80.0-98.0) fL MCH 29.2 (27.0-33.0) pg MCHC 33.7 (31.0-35.0) g/dl RDW 13.1 (11.0-16.0) % Plt Count 247 (160-400) X10*3/uL MPV 9.4 (9.4-12.3) fL Immature Gran % (Auto) 0.4 (0.0-0.4) % Neut % (Auto) 77.4 H (45-73) % Lymph % (Auto) 14.3 L (20-40) % [place] % (Auto) 6.1 (2-11) % Eos % (Auto) 0.6 (0-4) % Baso % (Auto) 1.2 (0-2) % Lymph # (Auto) 0.7 L (1.2-4.9) X10*3/uL [place] # (Auto) 0.3 (0.1-1.2) X10*3/uL Eos # (Auto) 0.0 (0.0-0.4) X10*3/uL Baso # (Auto) 0.1 (0.0-0.2) X10*3/uL Abs Immat Gran (auto) 0.02 (0.00-0.03) X10*3/uL Absolute Neuts (auto) 3.8 (2.0-8.3) x10*3/uL Absolute Nucleated RBC 0.000 (0.0-0.012) X10*3/uL Nucleated RBC % (auto) 0.0 (0.0-0.2) /100WBC PT 11.4 (10.0-13.1) SEC INR 1.0 (0.9-1.1) Sodium 135 (135-145) mmol/L Potassium 3.9 (3.3-5.1) mmol/L Chloride 101 (96-108) mmol/L Carbon Dioxide 25 (22-29) mmol/L Anion Gap 13 (12-20) BUN 12 (9-16) mg/dL Creatinine 0.77 (0.5-1.4) mg/dL Estim Creat Clear Calc 42.4 Estimated GFR > 60 Random Glucose 105 (60-115) mg/dL Calcium 9.9 (8.4-10.2) mg/dL Magnesium 1.9 (1.6-2.6) mg/dL Total Bilirubin 0.4 (0.0-1.0) mg/dL AST 27 (5-31) U/L ALT 17 (0-31) U/L Alkaline Phosphatase 85 (39-117) U/L Troponin I High Sens (<3.5-17.0) ng/L Total Protein 7.2 (6.5-8.0) g/dL Albumin 4.4 (3.5-5.0) g/dL Urine Color Urine Appearance Urine pH (5.0-9.0) Ur Specific [place] (1.005-1.025) Urine Protein (Neg-Trace) mg/dL Urine Glucose (UA) (Negative) mg/dL Urine Ketones (Negative) mg/dL Urine Blood (Negative) Urine Nitrite (Negative) Ur Leukocyte Esterase (Negative) Urine RBC (0-2) /HPF Urine WBC (0-5) /HPF Ur Squamous Epith Cells (0-2) /HPF Urine Bacteria (None Seen) Hyaline Casts (0-2) /LPF Influenza Type A (PCR) (Negative) Influenza Type B (PCR) (Negative) RSV RNA Qual (PCR) (Negative) SARS-CoV-2 RNA (RT-PCR) (Negative) 11/04/22 11/04/22 11/04/22 Range/Units 12:35 12:35 13:50 WBC (4.8-10.8) X10*3/uL RBC (4.20-5.50) X10*6/uL Hgb (12.0-16.0) g/dl Hct (37.0-47.0) % MCV (80.0-98.0) fL MCH (27.0-33.0) pg MCHC (31.0-35.0) g/dl RDW (11.0-16.0) % Plt Count (160-400) X10*3/uL MPV (9.4-12.3) fL Immature Gran % (Auto) (0.0-0.4) % Neut % (Auto) (45-73) % Lymph % (Auto) (20-40) % [place] % (Auto) (2-11) % Eos % (Auto) (0-4) % Baso % (Auto) (0-2) % Lymph # (Auto) (1.2-4.9) X10*3/uL [place] # (Auto) (0.1-1.2) X10*3/uL Eos # (Auto) (0.0-0.4) X10*3/uL Baso # (Auto) (0.0-0.2) X10*3/uL Abs Immat Gran (auto) (0.00-0.03) X10*3/uL Absolute Neuts (auto) (2.0-8.3) x10*3/uL Absolute Nucleated RBC (0.0-0.012) X10*3/uL Nucleated RBC % (auto) (0.0-0.2) /100WBC PT (10.0-13.1) SEC INR (0.9-1.1) Sodium (135-145) mmol/L Potassium (3.3-5.1) mmol/L Chloride (96-108) mmol/L Carbon Dioxide (22-29) mmol/L Anion Gap (12-20) BUN (9-16) mg/dL Creatinine (0.5-1.4) mg/dL Estim Creat Clear Calc Estimated GFR Random Glucose (60-115) mg/dL Calcium (8.4-10.2) mg/dL Magnesium (1.6-2.6) mg/dL Total Bilirubin (0.0-1.0) mg/dL AST (5-31) U/L ALT (0-31) U/L Alkaline Phosphatase (39-117) U/L Troponin I High Sens < 3.5 (<3.5-17.0) ng/L Total Protein (6.5-8.0) g/dL Albumin (3.5-5.0) g/dL Urine Color Yellow Urine Appearance Clear Urine pH 7.5 (5.0-9.0) Ur Specific [place] <= 1.005 (1.005-1.025) Urine Protein Negative (Neg-Trace) mg/dL Urine Glucose (UA) Negative (Negative) mg/dL Urine Ketones Negative (Negative) mg/dL Urine Blood Trace H (Negative) Urine Nitrite Negative (Negative) Ur Leukocyte Esterase Trace H (Negative) Urine RBC 3-5 H (0-2) /HPF Urine WBC 0-5 (0-5) /HPF Ur Squamous Epith Cells 0-2 (0-2) /HPF Urine Bacteria None Seen (None Seen) Hyaline Casts 0-2 (0-2) /LPF Influenza Type A (PCR) NEGATIVE (Negative) Influenza Type B (PCR) NEGATIVE (Negative) RSV RNA Qual (PCR) NEGATIVE (Negative) SARS-CoV-2 RNA (RT-PCR) NEGATIVE (Negative) Independent Interpretation I performed an independent interpretation of an: EKG Interpretation: Normal sinus rhythm. Right bundle branch block. Ventricular rate is 76. DC interval 138. QRS 128. QTC 468. Neck is stiff Radiology Impression Discussion of test interpretation with radiology: I have reviewed the radiologist's reading. Radiologist Impression: Head CT scan negative for stroke Tests considered The following testing was considered but not selected: Neck CTA not done. NO signs of large vessel clot. Discharge Plan Discharge Clinical Impression: TIA (transient ischemic attack) Patient Disposition: Admitted As Inpatient
[2022-11-04 13:46] VITALS: BP 186/95; PULSE 74; RESP 16; TEMP 36.7; O2SAT 98
[2022-11-04 13:58] LABS: Appearance Urine Clear; Color Urine Yellow; Glucose Urine UA Negative (Negative); Leukocyte Esterase Urine Trace (Negative); Nitrite Urine Negative (Negative); PH 7.5 (5.0-9.0); Specific Gravity - Urine <= 1.005 (1.005-1.025); UMIC TRIGGER UACC YES; Urine Blood Trace (Negative); Urine Ketones Negative (Negative); Urine Protein Negative (Neg-Trace)
[2022-11-04 14:03] LABS: Bacteria Urine None Seen (None Seen); Hyaline Casts Urine 0-2 /LPF (0-2); Squamous Epithelial Cell Urine 0-2 /HPF (0-2); WBC Urine 0-5 /HPF (0-5)
--- NOTE | 2022-11-04 16:20 | PHA.MEDREC ---
Pharmacy Consult ? Medication Reconciliation Pharmacy has completed the medication reconciliation.
--- NOTE | 2022-11-04 16:25 | PM.IMHP ---
History of Present Illness Date of Service: 11/04/22 Attending physician on admission: Gene Trent Chief Complaint: transient episodes of word-finding difficulty 87-year-old female patient with past medical history significant for paroxysmal atrial fibrillation, sick sinus syndrome status post pacemaker placement on Eliquis, history of restless leg syndrome, presented to [facility] after she had 2 episodes of word-finding difficulty both episodes associated with headache and dizziness as per patient yesterday at around 16:15 she was at [employer] during her 1st reading she noticed darkness around the words that appeared togather and words were not coming out of her mouth, during 2nd reading few minutes later she felt the same with headache and dizziness, today at 10:15 she was bringing communion to a [facility] at [facility] she couldnt think of words she struggled to bring words out, had mild dizziness and headache, symptoms did not last for more than few minutes, she did not have any other associated neuro deficits, no weakness no numbness, no history of prior similar episodes, is compliant with Eliquis, denies recent episode of fever chills, no nasal congestion, no cough, no chest pain, no palpitation, no URI symptoms, no urinary symptoms of urgency,no frequency, 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 Review of Systems Review of Systems: General no headache no dizziness no fever chills. CVS no chest pain, no palpitation. Respiratory no cough, no sob. Gastrointestinal no nausea no vomiting, no abdominal pain no urinary urgency, no frequency Musculoskeletal no pain Yes all other systems are reviewed and are negative PMFSH Pertinent family history: Parents are , Father coronary artery disease Social History (Updated 11/04/22 @ 17:05 by Gene Trent MD) Household Members: None Housing: House Do you presently have visiting nurse or other home services: No Alcohol intake: never Patient Tobacco Use Status: Never used Tobacco Smoked in Last 30 Days: No Use of substances other than those prescribed or required for medical reasons: No Have you been hit, kicked, punched, or otherwise hurt by someone within the past year? If so, by whom?: No Do you feel safe in your current relationship?: Yes Is there a partner from a previous relationship who is making you feel unsafe now?: No Are you made to feel afraid or neglected: No Advance Directives: No Advance Directives Information Provided: Yes Do you have thoughts of harming others: None Do you have a plan to hurt others: No Plan Recently lost weight without trying: No Nutrition Risks: No Nutritional Risk Patient : No : No Poor oral hygiene: No service: No Meds Allergies Allergy/AdvReac Type Severity Reaction Status Date / Time No Known Allergies Allergy Unverified 07/14/20 15:16 [No Known Allergies*] Active Medications: Current Medications Apixaban (Apixaban 2.5 Mg Tablet) 2.5 mg PO BID [facility] Multivitamins/Vitamin C (Multivitamin Tablet) 1 tab PO QAM [facility] Pharmacy Consult (Consult Rx Perform Med Rec) 1 each MISCELLANE ONCE PRN PRN Reason: Consult order Polyethylene Glycol (Polyethylene Glycol 3350 17 Gm Powd.Pack) 17 gm PO DAILY [facility] Pramipexole Dihydrochloride (Pramipexole Di-Hcl 0.125 Mg Tablet) 0.125 mg PO BEDTIME [facility] Sodium Chloride (0.9 % Sodium Chloride Flush 3 Ml Syringe) 3 ml IVFLUSH QSHIFT [facility] Tamsulosin HCl (Tamsulosin Hcl 0.4 Mg Capsule) 0.4 mg PO BEDTIME [facility] Vitamin D (Cholecalciferol (Vitamin D3) 25 Mcg Tablet) 25 mcg PO DAILY [facility] Home Medications Medication Instructions Recorded Confirmed Last Taken Type acetaminophen 325 mg tablet 650 mg PO Q4H PRN Pain 11/04/22 11/04/22 Unknown History apixaban 2.5 mg tablet (Eliquis) 1 tab PO BID 11/04/22 11/04/22 11/04/22 History calcium carbonate 600 mg-vitamin 1 tab PO DAILY 11/04/22 11/04/22 11/04/22 History D3 10 mcg (400 unit) tablet (Calcium 600 + D(3)) cholecalciferol (vitamin D3) 25 25 mcg PO DAILY 11/04/22 11/04/22 11/04/22 History mcg (1,000 unit) capsule (Vitamin D3) multivitamin 1 tab PO QAM 11/04/22 11/04/22 11/04/22 History pantoprazole 40 mg tablet,delayed 1 tab PO BID 11/04/22 11/04/22 11/04/22 History release polyethylene glycol 3350 17 gram 17 g PO DAILY 11/04/22 11/04/22 11/04/22 History oral powder packet (Miralax) pramipexole 0.125 mg tablet 1 tab PO BEDTIME 11/04/22 11/04/22 11/03/22 History sennosides 8.6 mg tablet (senna) 17.2 mg PO BEDTIME 11/04/22 11/04/22 Unknown History tamsulosin 0.4 mg capsule 1 cap PO BEDTIME 11/04/22 11/04/22 11/03/22 History Physical Exam Vital Signs and Narrative: Vital Signs: Last Vital Signs Temp 98.0 F 11/04/22 13:46 Pulse 74 11/04/22 13:46 Resp 16 11/04/22 13:46 BP 186/95 H 11/04/22 13:46 Pulse Ox 98 11/04/22 13:46 O2 Del Method 11/04/22 13:46 BMI result Body Mass Index 24.7 Const: Other: General awake alert x3, resting comfortably in no acute distress. HEENT PERRLA,EOMI Neck supple no JVD. CVS regular rate rhythm, Respiratory lungs clear to auscultation, no respiratory distress, no wheeze, no rhonchi. Gastrointestinal abdomen soft, nontender, bowel sounds audible, no guarding , no rigidity. Extremities no edema. Neuro nonfocal , normal symmetrical strength both upper and lower extremities no pronator drift,speech clear, right facial scar due to recent surgery. Psych appropriate affect Results Labs 11/04/22 12:35 11/04/22 12:35 Labs: Laboratory Results - last 24 hr 11/04/22 11/04/22 11/04/22 12:35 12:35 12:35 MCV 86.8 MCH 29.2 MCHC 33.7 RDW 13.1 Plt Count 247 MPV 9.4 Immature Gran % (Auto) 0.4 Neut % (Auto) 77.4 H Lymph % (Auto) 14.3 L [place] % (Auto) 6.1 Eos % (Auto) 0.6 Baso % (Auto) 1.2 Lymph # (Auto) 0.7 L [place] # (Auto) 0.3 Eos # (Auto) 0.0 Baso # (Auto) 0.1 Abs Immat Gran (auto) 0.02 Absolute Neuts (auto) 3.8 Absolute Nucleated RBC 0.000 Nucleated RBC % (auto) 0.0 PT 11.4 INR 1.0 Anion Gap 13 Estim Creat Clear Calc 42.4 Estimated GFR > 60 Random Glucose 105 Calcium 9.9 Magnesium 1.9 Total Bilirubin 0.4 AST 27 ALT 17 Alkaline Phosphatase 85 Troponin I High Sens Total Protein 7.2 Albumin 4.4 Urine Color Urine Appearance Urine pH Ur Specific [place] Urine Protein Urine Glucose (UA) Urine Ketones Urine Blood Urine Nitrite Ur Leukocyte Esterase Urine RBC Urine WBC Ur Squamous Epith Cells Urine Bacteria Hyaline Casts Influenza Type A (PCR) Influenza Type B (PCR) RSV RNA Qual (PCR) SARS-CoV-2 RNA (RT-PCR) 11/04/22 11/04/22 11/04/22 12:35 12:35 13:50 MCV MCH MCHC RDW Plt Count MPV Immature Gran % (Auto) Neut % (Auto) Lymph % (Auto) [place] % (Auto) Eos % (Auto) Baso % (Auto) Lymph # (Auto) [place] # (Auto) Eos # (Auto) Baso # (Auto) Abs Immat Gran (auto) Absolute Neuts (auto) Absolute Nucleated RBC Nucleated RBC % (auto) PT INR Anion Gap Estim Creat Clear Calc Estimated GFR Random Glucose Calcium Magnesium Total Bilirubin AST ALT Alkaline Phosphatase Troponin I High Sens < 3.5 Total Protein Albumin Urine Color Yellow Urine Appearance Clear Urine pH 7.5 Ur Specific [place] <= 1.005 Urine Protein Negative Urine Glucose (UA) Negative Urine Ketones Negative Urine Blood Trace H Urine Nitrite Negative Ur Leukocyte Esterase Trace H Urine RBC 3-5 H Urine WBC 0-5 Ur Squamous Epith Cells 0-2 Urine Bacteria None Seen Hyaline Casts 0-2 Influenza Type A (PCR) NEGATIVE Influenza Type B (PCR) NEGATIVE RSV RNA Qual (PCR) NEGATIVE SARS-CoV-2 RNA (RT-PCR) NEGATIVE Imaging Radiologist's Impressions: Impressions Chest X-Ray 11/04/22 13:20 IMPRESSION: Emphysematous changes of the lungs without acute pulmonary pathology. Head CT 11/04/22 15:01 IMPRESSION: No acute intracranial abnormality. 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 Paroxysmal atrial fibrillation on Eliquis not on rate control medication. Code status full code DVT prophylaxis on Eliquis Time Spent With Patient Time: Total time managing care of this patient today ____ minutes. Quality Stroke Does the patient have a stroke diagnosis?: No VTE Prior VTE?: No VTE Risk Level:: Medical - moderate - high VTE Device Contraindication: Treatment Not Indicated VTE Drug Contraindication: N/A - Med Ordered
[2022-11-04] MEDS: amLODIPine Besylate 5 MG TABLET PO (17:19)
[2022-11-04] MEDS: Aspirin Enteric Coated 81 MG TABLET.DR PO (17:19)
[2022-11-04 21:18] VITALS: BP 92/70; PULSE 64; RESP 19; TEMP 36.8; O2SAT 94
[2022-11-04] MEDS: Tamsulosin HCL 0.4 MG CAPSULE PO (21:25)
[2022-11-04] MEDS: Apixaban 2.5 MG TABLET PO (21:25)
[2022-11-04] MEDS: Pramipexole Di-HCL 0.125 MG TABLET PO (21:25)
[2022-11-04 22:38] VITALS: BP 142/69; PULSE 69
[2022-11-04 23:22] VITALS: BP 114/75; PULSE 68; RESP 18; TEMP 36.9
--- NOTE | 2022-11-04 23:34 | PC.NURSE ---
pt resting comfortably on stretcher at this time. pt states no new requests at this time
[2022-11-05] VITALS (8 sets, daily range): BP systolic 113–140; BP diastolic 61–76; PULSE 63–80; RESP 14–20; TEMP 36.1–37.1; O2SAT 94–97
[2022-11-05] MEDS: 0.9 % Sodium Chloride Flush 3 ML SYRINGE IVFLUSH ×4 (02:28→21:14)
--- NOTE | 2022-11-05 04:16 | PC.NURSE ---
this rn placed 20 G iv in L AC at this time. flushes well, pt tolerated well. pt resting comfortably on back on stretcher with no new requests at this time
--- NOTE | 2022-11-05 05:46 | PC.NURSE ---
this rn assisted pt to restroom. pt 1 assist to restroom. reports no difficulties ambulating at this time. pt repositioned into bed. HOB elevated at this time. call wild provided to pt. pt reports no new requests at this time
[2022-11-05] MEDS: polyethylene glycoL 3350 17 GM POWD.PACK PO (07:33)
[2022-11-05] MEDS: Multivitamin TABLET 1 TAB PO (07:33)
[2022-11-05] MEDS: Apixaban 2.5 MG TABLET PO ×2 (07:33→21:13)
[2022-11-05] MEDS: Cholecalciferol (Vitamin D3) 25 MCG TABLET PO (07:33)
--- NOTE | 2022-11-05 07:37 | PC.NURSE ---
Addendum entered by Sindy Watson RN 11/05/22 08:59: neuro intact Original Note: patient a&ox3, denies dizziness/pain at this time, lungs have course crackles bilateral bases, blood typer intact nsr 70s, vss, pt ambulated with this nurse with stby assist to bathroom, will continue to monitor
--- NOTE | 2022-11-05 11:53 | MHC.CM.PN ---
met with pt who explions that she livers alone has no servceis and drives she is covid vax x4 dc plan home no servceis
--- NOTE | 2022-11-05 16:33 | PM.NEUROCN ---
History of Present Illness Data of Consult Service Date: 11/05/22 Primary Care Provider: Andrés Austin MD [facility] Reason for consult: TIA 87 years old woman who was in usual state of health, with previous history of migraine and restless leg syndrome, when she was in her mormon and trying to read something that she would have known. As she noted that words were jumbled and coming closer to each other. It lasted for few minutes. She knew where she was and what was going on. She denied any headache. She also had a similar episode soon after that lasted a about a minute. She became very nervous and anxious and came to hospital. Review of Systems Review of Systems: No recent cold or flu-like illness PMFSH Social History Social History (Updated 11/04/22 @ 17:05 by Gene Trent MD) Household Members: None Housing: House Do you presently have visiting nurse or other home services: No Alcohol intake: never Patient Tobacco Use Status: Never used Tobacco Smoked in Last 30 Days: No Use of substances other than those prescribed or required for medical reasons: No Have you been hit, kicked, punched, or otherwise hurt by someone within the past year? If so, by whom?: No Do you feel safe in your current relationship?: Yes Is there a partner from a previous relationship who is making you feel unsafe now?: No Are you made to feel afraid or neglected: No Advance Directives: No Advance Directives Information Provided: Yes Do you have thoughts of harming others: None Do you have a plan to hurt others: No Plan Recently lost weight without trying: No Nutrition Risks: No Nutritional Risk Patient : No : No Poor oral hygiene: No service: No Meds Allergies Allergy/AdvReac Type Severity Reaction Status Date / Time No Known Allergies Allergy Unverified 07/14/20 15:16 [No Known Allergies*] Active Medications: Current Medications Acetaminophen (Acetaminophen 325 Mg Tablet) 650 mg PO Q6H PRN PRN Reason: Pain, Mild (Pain Scale 1-3) Apixaban (Apixaban 2.5 Mg Tablet) 2.5 mg PO BID [facility] Last Admin: 11/05/22 07:33 Dose: 2.5 mg Melatonin (Melatonin 3 Mg Tablet) 3 mg PO BEDTIME PRN PRN Reason: Insomnia Multivitamins/Vitamin C (Multivitamin Tablet) 1 tab PO DAILY [facility] Last Admin: 11/05/22 07:33 Dose: 1 tab Omeprazole (Omeprazole 40 Mg Capsule.Dr) 40 mg PO BID@0630,1630 [facility] Ondansetron HCl (Ondansetron Hcl 4 Mg/2 Ml Vial) 4 mg IVPUSH Q8H PRN PRN Reason: Nausea and Vomiting Pharmacy Consult (Consult Rx Perform Med Rec) 1 each MISCELLANE ONCE PRN PRN Reason: Consult order Polyethylene Glycol (Polyethylene Glycol 3350 17 Gm Powd.Pack) 17 gm PO DAILY [facility] Last Admin: 11/05/22 07:33 Dose: 17 gm Pramipexole Dihydrochloride (Pramipexole Di-Hcl 0.125 Mg Tablet) 0.125 mg PO BEDTIME [facility] Last Admin: 11/04/22 21:25 Dose: 0.125 mg Senna (Sennosides 8.6 Mg Tablet) 17.2 mg PO BEDTIME [facility] Sodium Chloride (0.9 % Sodium Chloride Flush 3 Ml Syringe) 3 ml IVFLUSH QSHIFT [facility] Last Admin: 11/05/22 07:34 Dose: 3 ml Tamsulosin HCl (Tamsulosin Hcl 0.4 Mg Capsule) 0.4 mg PO BEDTIME [facility] Last Admin: 11/04/22 21:25 Dose: 0.4 mg Vitamin D (Cholecalciferol (Vitamin D3) 25 Mcg Tablet) 25 mcg PO DAILY [facility] Last Admin: 11/05/22 07:33 Dose: 25 mcg Home Medications Medication Instructions Recorded Confirmed Last Taken Type acetaminophen 325 mg tablet 650 mg PO Q4H PRN Pain 11/04/22 11/04/22 Unknown History apixaban 2.5 mg tablet (Eliquis) 1 tab PO BID 11/04/22 11/04/22 11/04/22 History calcium carbonate 600 mg-vitamin 1 tab PO DAILY 11/04/22 11/04/22 11/04/22 History D3 10 mcg (400 unit) tablet (Calcium 600 + D(3)) cholecalciferol (vitamin D3) 25 25 mcg PO DAILY 11/04/22 11/04/22 11/04/22 History mcg (1,000 unit) capsule (Vitamin D3) multivitamin 1 tab PO QAM 11/04/22 11/04/22 11/04/22 History pantoprazole 40 mg tablet,delayed 1 tab PO BID 11/04/22 11/04/22 11/04/22 History release polyethylene glycol 3350 17 gram 17 g PO DAILY 11/04/22 11/04/22 11/04/22 History oral powder packet (Miralax) pramipexole 0.125 mg tablet 1 tab PO BEDTIME 11/04/22 11/04/22 11/03/22 History sennosides 8.6 mg tablet (senna) 17.2 mg PO BEDTIME 11/04/22 11/04/22 Unknown History tamsulosin 0.4 mg capsule 1 cap PO BEDTIME 11/04/22 11/04/22 11/03/22 History Physical Exam Vital Signs: Vital Signs: Last Vital Signs Temp 97.4 F 11/05/22 15:21 Pulse 70 11/05/22 15:21 Resp 20 11/05/22 15:21 BP 132/67 11/05/22 15:21 Pulse Ox 96 11/05/22 15:21 O2 Del Method 11/05/22 10:54 BMI result Body Mass Index 24.7 Neuro: Other: she was alert and awake with normal spontaneity of speech fluency comprehension and anxious affect. Face was symmetrical. Tongue was midline. There was no pronator drift. [id number] testing was normal. Deep tendon reflexes were trace with flexor plantars. Results Labs 11/04/22 12:35 11/04/22 12:35 Labs: Noncontrast head CT revealed mild atrophy and moderate chronic microvascular ischemic changes. Assessment and Plan (1) Transient neurologic deficit: Status: Acute She had 2 similar episodes that were suggestive of transient cerebral dysfunction, which could happen from migraine, ischemia, or seizure. She used to have migraine headaches in the past. At this time my recommendation is to continue baby aspirin daily and control vascular risk factors and arrange CTA of brain and neck to look at her posterior circulation and also an EEG. Time Spent With Patient Time: Total time managing care of this patient today ____ minutes. Procedures Date of Service Date of Service: 11/05/22
--- NOTE | 2022-11-05 17:12 | P.PNIM_ITS ---
Subjective Subjective Date of Service: 11/05/22 Interval History: Patient being followed for transient neurological deficit with word-finding difficulty and vision impairment, patient denies any neuro symptoms today denies headache, no dizziness, no word-finding difficulty, no visual impairment. Review of Systems Review of Systems: Yes all other systems are reviewed and are negative Physical Exam Vital Signs: Vital Signs: Last Vital Signs Temp 97.4 F 11/05/22 15:21 Pulse 70 11/05/22 15:21 Resp 20 11/05/22 15:21 BP 132/67 11/05/22 15:21 Pulse Ox 96 11/05/22 15:21 O2 Del Method 11/05/22 10:54 BMI result Body Mass Index 24.7 Const: Other: General awake alert x3, resting comfortably in no acute distress.? HEENT PERRLA,EOMI Neck? supple no JVD. CVS? regular rate rhythm, Respiratory lungs clear to auscultation, no respiratory distress, no wheeze, no rhonchi. Gastrointestinal abdomen soft, nontender, bowel sounds audible, no guarding , no rigidity. Extremities no edema. Neuro nonfocal , normal symmetrical strength both upper and lower extremities no pronator drift,speech clear, right facial scar due to recent surgery. Psych appropriate affect Objective Data Active Medications Acetaminophen (Acetaminophen 325 Mg Tablet) 650 mg PO Q6H PRN PRN Reason: Pain, Mild (Pain Scale 1-3) Apixaban (Apixaban 2.5 Mg Tablet) 2.5 mg PO BID [facility] Last Admin: 11/05/22 07:33 Dose: 2.5 mg Documented By: VELASQUEZ Melatonin (Melatonin 3 Mg Tablet) 3 mg PO BEDTIME PRN PRN Reason: Insomnia Multivitamins/Vitamin C (Multivitamin Tablet) 1 tab PO DAILY [facility] Last Admin: 11/05/22 07:33 Dose: 1 tab Documented By: VELASQUEZ Omeprazole (Omeprazole 40 Mg Capsule.) 40 mg PO BID@0630,1630 [facility] Ondansetron HCl (Ondansetron Hcl 4 Mg/2 Ml Vial) 4 mg IVPUSH Q8H PRN PRN Reason: Nausea and Vomiting Pharmacy Consult (Consult Rx Perform Med Rec) 1 each MISCELLANE ONCE PRN PRN Reason: Consult order Polyethylene Glycol (Polyethylene Glycol 3350 17 Gm Powd.Pack) 17 gm PO DAILY [facility] Last Admin: 11/05/22 07:33 Dose: 17 gm Documented By: VELASQUEZ Pramipexole Dihydrochloride (Pramipexole Di-Hcl 0.125 Mg Tablet) 0.125 mg PO BEDTIME [facility] Last Admin: 11/04/22 21:25 Dose: 0.125 mg Documented By: RASHI Senna (Sennosides 8.6 Mg Tablet) 17.2 mg PO BEDTIME [facility] Sodium Chloride (0.9 % Sodium Chloride Flush 3 Ml Syringe) 3 ml IVFLUSH QSHIFT [facility] Last Admin: 11/05/22 07:34 Dose: 3 ml Documented By: VELASQUEZ Tamsulosin HCl (Tamsulosin Hcl 0.4 Mg Capsule) 0.4 mg PO BEDTIME [facility] Last Admin: 11/04/22 21:25 Dose: 0.4 mg Documented By: RASHI Vitamin D (Cholecalciferol (Vitamin D3) 25 Mcg Tablet) 25 mcg PO DAILY [facility] Last Admin: 11/05/22 07:33 Dose: 25 mcg Documented By: VELASQUEZ Labs 11/04/22 12:35 11/04/22 12:35 Assessment and Plan (1) TIA (transient ischemic attack): Status: Acute (2) Elevated blood pressure reading: Status: Acute Plan 87-year-old female patient with past medical history of sick sinus syndrome status post pacemaker placement, atrial fibrillation presented to [facility] due to transient neurological deficit and noted to have elevated blood pressure will be admitted under observation Transient neurological deficit All symptoms of word-finding difficulty and vision impairment resolved CT brain showed no acute intracranial abnormality, noted to have chronic microangiopathy Blood pressure improved, seen by Dr. Pacheco he recommended CTA head and neck to look for posterior circulation and EEG, differential diagnosis of migraine, ischemia or seizure. Patient on Eliquis, patient not on aspirin at home. Elevated blood pressure No prior history of hypertension, patient given 1 dose of Norvasc blood pressure dropped, therefore Norvasc discontinued blood pressure remains stable, initial elevated blood pressure likely due to stress History of sick sinus syndrome EKG showed no acute abnormality. Paroxysmal atrial fibrillation on Eliquis not on rate control medication. Code status full code DVT prophylaxis on Eliquis Time Spent With Patient Time: Total time managing care of this patient today ____ minutes. Quality Stroke Does the patient have a stroke diagnosis?: No VTE Prior VTE?: No VTE Risk Level:: Medical - moderate - high VTE Device Contraindication: Treatment Not Indicated VTE Drug Contraindication: N/A - Med Ordered
[2022-11-05] MEDS: Omeprazole 40 MG CAPSULE.DR PO (17:26)
[2022-11-05] MEDS: iohexoL 350 MG/ML 100 ML INFUS..BTL IV (17:56)
[2022-11-05] MEDS: Sennosides 8.6 MG TABLET 17.2 MG PO (21:13)
[2022-11-05] MEDS: Pramipexole Di-HCL 0.125 MG TABLET PO (21:13)
[2022-11-05] MEDS: Tamsulosin HCL 0.4 MG CAPSULE PO (21:13)
--- NOTE | 2022-11-06 | EEG_ITS ---
This is a 16-channel EEG with an EKG lead. The patient is reported awake during the tracing. Background EEG rhythm is mixed theta beta, low to medium amplitude, but no obvious asymmetry or paroxysmal tendency. Photic stimulation does not produce any significant abnormality. Hyperventilation is not performed. Cardiac lead did not reveal any significant abnormality. No sharp wave spikes or paroxysmal tendencies noted. IMPRESSION: Mild generalized slowing with no evidence of seizure disorder. MD JYOTI Diaz/MARISSA / [phone]
[2022-11-06 03:28] VITALS: BP 119/60; PULSE 68; RESP 18; TEMP 37; O2SAT 98
[2022-11-06] MEDS: Omeprazole 40 MG CAPSULE.DR PO ×2 (06:24→16:04)
[2022-11-06 07:18] VITALS: BP 128/70; PULSE 72; RESP 12; TEMP 36.6; O2SAT 96
[2022-11-06] MEDS: polyethylene glycoL 3350 17 GM POWD.PACK PO (08:11)
[2022-11-06] MEDS: Cholecalciferol (Vitamin D3) 25 MCG TABLET PO (08:11)
[2022-11-06] MEDS: Apixaban 2.5 MG TABLET PO ×2 (08:11→20:15)
[2022-11-06] MEDS: 0.9 % Sodium Chloride Flush 3 ML SYRINGE IVFLUSH ×3 (08:11→20:16)
[2022-11-06] MEDS: Multivitamin TABLET 1 TAB PO (08:11)
[2022-11-06] MEDS: Aspirin Enteric Coated 81 MG TABLET.DR PO (08:11)
--- NOTE | 2022-11-06 09:16 | PC.NURSE ---
report received from overnight RN, medical billing specialist per DEC. pt refusing bed alarm, educated about safety and encouraged to call for assistance. Call iwld within reach, nonskid socks on
--- NOTE | 2022-11-06 14:36 | HO.PM.IMPN ---
Subjective Subjective Date of Service: 11/07/22 Interval History: followed for transient neurological deficit with word-finding difficulty and vision impairment. Review of Systems denies any neuro symptoms today denies headache, no dizziness, no word-finding difficulty, no visual impairment. Physical Exam Vital Signs: Vital Signs: Last Vital Signs Temp 97.8 F 11/06/22 07:18 Pulse 72 11/06/22 07:18 Resp 12 11/06/22 07:18 BP 128/70 11/06/22 07:18 Pulse Ox 96 11/06/22 07:18 O2 Del Method 11/06/22 07:18 BMI result Body Mass Index 24.7 General awake alert x3,not acute distress.? CVS? regular rate rhythm, Respiratory lungs clear to auscultation, no respiratory distress, no wheeze, no rhonchi. Gastrointestinal abdomen soft, nontender, bowel sounds audible, no guarding , no rigidity. Extremities no edema. Neuro nonfocal , normal symmetrical strength both upper and lower extremities no pronator drift,speech clear, right facial scar due to recent surgery. Psych appropriate affect Objective Data Active Medications Acetaminophen (Acetaminophen 325 Mg Tablet) 650 mg PO Q6H PRN PRN Reason: Pain, Mild (Pain Scale 1-3) Apixaban (Apixaban 2.5 Mg Tablet) 2.5 mg PO BID [facility] Last Admin: 11/06/22 08:11 Dose: 2.5 mg Documented By: GARCIA Aspirin (Aspirin Enteric Coated 81 Mg Tablet.) 81 mg PO DAILY [facility] Last Admin: 11/06/22 08:11 Dose: 81 mg Documented By: GARCIA Melatonin (Melatonin 3 Mg Tablet) 3 mg PO BEDTIME PRN PRN Reason: Insomnia Multivitamins/Vitamin C (Multivitamin Tablet) 1 tab PO DAILY [facility] [place] Last Admin: 11/06/22 08:11 Dose: 1 tab Documented By: GARCIA Omeprazole (Omeprazole 40 Mg Capsule.) 40 mg PO BID@0630,1630 [facility] Last Admin: 11/06/22 06:24 Dose: 40 mg Documented By: RADHA Ondansetron HCl (Ondansetron Hcl 4 Mg/2 Ml Vial) 4 mg IVPUSH Q8H PRN PRN Reason: Nausea and Vomiting Pharmacy Consult (Consult Rx Perform Med Rec) 1 each MISCELLANE ONCE PRN PRN Reason: Consult order Polyethylene Glycol (Polyethylene Glycol 3350 17 Gm Powd.Pack) 17 gm PO DAILY [facility] Last Admin: 11/06/22 08:11 Dose: 17 gm Documented By: GARCIA Pramipexole Dihydrochloride (Pramipexole Di-Hcl 0.125 Mg Tablet) 0.125 mg PO BEDTIME [facility] [place] Last Admin: 11/05/22 21:13 Dose: 0.125 mg Documented By: RADHA Senna (Sennosides 8.6 Mg Tablet) 17.2 mg PO BEDTIME [facility] Last Admin: 11/05/22 21:13 Dose: 17.2 mg Documented By: RADHA Sodium Chloride (0.9 % Sodium Chloride Flush 3 Ml Syringe) 3 ml IVFLUSH QSHIFT [facility] Last Admin: 11/06/22 08:11 Dose: 3 ml Documented By: GARCIA Tamsulosin HCl (Tamsulosin Hcl 0.4 Mg Capsule) 0.4 mg PO BEDTIME [facility] Last Admin: 11/05/22 21:13 Dose: 0.4 mg Documented By: RADHA Vitamin D (Cholecalciferol (Vitamin D3) 25 Mcg Tablet) 25 mcg PO DAILY [facility] Last Admin: 11/06/22 08:11 Dose: 25 mcg Documented By: GARCIA Labs 11/04/22 12:35 11/04/22 12:35 Assessment and Plan (1) TIA (transient ischemic attack): Status: Acute (2) Elevated blood pressure reading: Status: Acute Plan 87-year-old female patient with past medical history of sick sinus syndrome status post pacemaker placement, atrial fibrillation presented to [facility] due to transient neurological deficit and noted to have elevated blood pressure will be admitted under observation Transient neurological deficit: possible tia All symptoms of word-finding difficulty and vision impairment resolved CT brain showed no acute intracranial abnormality, noted to have chronic microangiopathy Blood pressure improved, seen by Dr. Pacheco he recommended CTA head and neck to look for posterior circulation and EEG, differential diagnosis of migraine, ischemia or seizure. Patient on Eliquis, patient not on aspirin at home. Elevated blood pressure No prior history of hypertension, patient given 1 dose of Norvasc blood pressure dropped, therefore Norvasc discontinued blood pressure remains stable, initial elevated blood pressure likely due to stress History of sick sinus syndrome EKG showed no acute abnormality. Paroxysmal atrial fibrillation on Eliquis not on rate control medication. Code status full code [facility] possible tia -neuro workup and follow up neuro pendin Time Spent With Patient Time: Total time managing care of this patient today ____ minutes. Quality Stroke Does the patient have a stroke diagnosis?: No VTE Prior VTE?: No VTE Risk Level:: Medical - moderate - high VTE Device Contraindication: Treatment Not Indicated VTE Drug Contraindication: N/A - Med Ordered
[2022-11-06 15:20] VITALS: BP 90/60; PULSE 86; RESP 17; TEMP 36; O2SAT 97
[2022-11-06 20:00] VITALS: BP 143/67; PULSE 67; RESP 18; TEMP 36.9; O2SAT 95
[2022-11-06] MEDS: Tamsulosin HCL 0.4 MG CAPSULE PO (20:15)
[2022-11-06] MEDS: Sennosides 8.6 MG TABLET 17.2 MG PO (20:15)
[2022-11-06] MEDS: Pramipexole Di-HCL 0.125 MG TABLET PO (20:15)
[2022-11-07] VITALS: BP 141/72; PULSE 62; RESP 18; TEMP 36.8; O2SAT 97
[2022-11-07 04:00] VITALS: BP 153/74; RESP 20; TEMP 36.9; O2SAT 97
[2022-11-07] MEDS: Omeprazole 40 MG CAPSULE.DR PO (06:09)
[2022-11-07 07:50] VITALS: BP 122/65; PULSE 67; RESP 20; TEMP 37.1; O2SAT 94
[2022-11-07] MEDS: Aspirin Enteric Coated 81 MG TABLET.DR PO (08:09)
[2022-11-07] MEDS: Cholecalciferol (Vitamin D3) 25 MCG TABLET PO (08:10)
[2022-11-07] MEDS: Apixaban 2.5 MG TABLET PO (08:10)
[2022-11-07] MEDS: 0.9 % Sodium Chloride Flush 3 ML SYRINGE IVFLUSH (08:10)
[2022-11-07] MEDS: polyethylene glycoL 3350 17 GM POWD.PACK PO (08:10)
[2022-11-07] MEDS: Multivitamin TABLET 1 TAB PO (08:10)
[2022-11-07 09:34] LABS: Thyroid Stimulating Hormone 2.15 uIU/mL (0.32-4.0)
[2022-11-07 09:41] LABS: Vitamin B12 566 pg/mL (200-900)
[2022-11-07 10:45] VITALS: BP 122/65; PULSE 67; O2SAT 94
--- NOTE | 2022-11-07 10:56 | MHC.CM.PN ---
Addendum entered by Sofya May 11/07/22 10:58: LOUIE 11/04/22 Original Note: Female 87 discharged today to home self care. Family is providing transportation home.
--- NOTE | 2022-11-07 11:08 | P.DS_ITS ---
DS: Providers Provider Date of Service: 11/07/22 Date of admission: 11/04/22 16:22 Primary care physician: Andrés Austin MD Consults: 11/05/22 08:11 Consult to Neurology Routine Consulting Provider: [facility] Reason for consultation: Transient neurological deficit Has provider been notified: No DS: Diagnosis Discharge Diagnosis (1) TIA (transient ischemic attack): Status: Acute (2) Elevated blood pressure reading: Status: Acute DS: Summary Hospital Course Hospital Course: 87-year-old female patient with past medical history significant for paroxysmal atrial fibrillation, sick sinus syndrome status post pacemaker placement on Eliquis, history of restless leg syndrome, presented to [facility] after she had 2 episodes of word-finding difficulty both episodes associated with headache and dizziness as per patient yesterday at around 16:15 she was at [facility] during her 1st reading she noticed darkness around the words that appeared togather and words were not coming out of her mouth, during 2nd reading few minutes later she felt the same with headache and dizziness, today at 10:15 she was bringing communion to a [facility] at [facility] she couldnt think of words she struggled to bring words out, had mild dizziness and headache, symptoms did not last for more than few minutes, she did not have any other associated neuro deficits, no weakness no numbness, no history of prior similar episodes, is compliant with Eliquis, denies recent episode of fever chills, no nasal congestion, no cough, no chest pain, no palpitation, no URI symptoms, no urinary symptoms of urgency,no frequency, 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 hospital course: Patient admitted to the hospital due to transient neurological deficit, CTA (please see below)and EEG seems-Mild generalized slowing with no evidence of seizure disorder, during this admission seen by Neurology-possible TIA: Recommended to add atorvastatin to Eliquis. BMP and LFT, B12 and TSH seems fine.Follow-up lipid panel outpatient . 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 above reviewed by neuro -no acute intervention ,Follow-up with PCP out patiently ,consider outpatient neurology follow-up for further management. blood pressure fluctuating-but mostly in 120s-continue monitor outpatient blood pressure, if needed consider outpatient blood pressure medications as per PCP. plan: as above. Above management discussed with the patient in detail length she understand and in agreement with the above plan, time spent 50 minutes. Time Spent with Patient Time attestation: Total time managing care of this patient today ____ minutes. Discharge coordination time: Greater than 30 minutes Quality: Safe Use of Opioids Does Pt have an Active Cancer Diagnosis on the Problem List?: No Quality: Stroke Does the patient have a stroke diagnosis?: No Physical Exam Vital Signs: Vital Signs: Last Vital Signs Temp 98.7 F 11/07/22 07:50 Pulse 67 11/07/22 10:45 Resp 20 11/07/22 07:50 BP 122/65 11/07/22 10:45 Pulse Ox 94 11/07/22 10:45 O2 Del Method 11/07/22 07:50 BMI result Body Mass Index 24.7 General awake alert x3,not acute distress.? CVS? regular rate rhythm, Respiratory lungs clear to auscultation, no respiratory distress, no wheeze, no rhonchi. Gastrointestinal abdomen soft, nontender, bs present , no guarding , no rigidity. Extremities no edema. Neuro nonfocal , normal symmetrical strength both upper and lower extremities no pronator drift,speech clear, right facial scar due to recent surgery. Psych appropriate affect DS: Data Data Completed and Pending Labs on day of discharge: Laboratory Results - last 24 hr 11/07/22 11/07/22 08:52 08:52 Vitamin B12 566 TSH 2.15 Imaging Chest x-ray: Radiologist's impression: ITS Impressions Chest X-Ray 11/04/22 13:20 IMPRESSION: Emphysematous changes of the lungs without acute pulmonary pathology. Head CT 11/04/22 15:01 IMPRESSION: No acute intracranial abnormality. Head/Neck CTA 11/05/22 17:50 IMPRESSION: CT HEAD: No intracranial hemorrhage or large acute infarction. Background changes of chronic microangiopathy. CTA NECK: No hemodynamically significant stenosis in the major arteries of the neck. 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 CTA HEAD: No large vessel occlusion or significant stenosis within the intracranial circulation. Discharge Plan Discharge Patient Disposition: Home, Self-Care Discharge Diagnosis: possible TIA Referrals: Andrés Austin MD [Primary Care Provider] - 1 Week Discharge Medications: New atorvastatin 40 mg tablet 40 mg PO BEDTIME Qty: 30 0RF Continued multivitamin Tablet 1 tab PO QAM acetaminophen 325 mg Tablet 650 mg PO Q4H PRN (Reason: Pain) polyethylene glycol 3350 [Miralax] 17 gram Powder In Packet 17 g PO DAILY tamsulosin 0.4 mg capsule 1 cap PO BEDTIME pantoprazole 40 mg tablet,delayed release (DR/EC) 1 tab PO BID pramipexole 0.125 mg tablet 1 tab PO BEDTIME cholecalciferol (vitamin D3) [Vitamin D3] 25 mcg (1,000 unit) Capsule 25 mcg PO DAILY calcium carbonate-vitamin D3 [Calcium 600 + D(3)] 600 mg-10 mcg (400 unit) Tablet 1 tab PO DAILY Eliquis 2.5 mg tablet 1 tab PO BID sennosides [senna] 8.6 mg Tablet 17.2 mg PO BEDTIME Discharge Orders: Discharge Order (Routine); Ordered 11/07/22 Ordered By: Parker Harris Activity on Discharge: As tolerated Stand Alone Forms: Patient Portal Discharge page Care Plan Goals: Patient came to the hospital due to transient neurological deficit, CTA and EEG seems fine seen by Neurology-possible TIA: Recommended to add atorvastatin to Eliquis. BMP and LFT, B12 and TSH seems fine. Follow-up lipid panel outpatient . Follow-up with PCP out patiently ,consider outpatient neurology follow-up for further management. Health Concerns: As above. Plan of Treatment: As above. Assessment: As above. Discharge Date/Time: 11/07/22 17:45
[2022-11-07 11:35] VITALS: BP 129/80; PULSE 62; RESP 20; TEMP 36.7; O2SAT 97
[2022-11-07 12:03] LABS: Cholesterol 203 mg/dL; HDL Cholesterol 70 mg/dL; LDL Cholesterol Calculated 116 mg/dl; Triglycerides 86 mg/dL
--- NOTE | 2022-11-07 12:06 | W.MHC.F2F ---
Service Date Service Date: 11/07/22 Encounter Date of encounter: 11/07/22 Encounter: tia Reasons for Services Signs and symptoms assessed: Monitoring blood pressure, any neurological changes. Reason for group home: CV/CP assess and/or care, medication management, medication treatment, teach disease management and other (Monitor blood pressure) MD Overseeing Care: Andrés Austin Homebound: Leaving the home is medically contraindicated at this time without the asist of a device and/or another person due th the listed conditions above and below. Reason homebound: weakness related to hospital stay Homebound supporting statement: Patient has multiple comorbidities in including possible TIA and generalized weeks posthospitalization needs help for with monitoring blood pressure, appointments help, lab draws if needed. Certification: Based on the above findings, I certify that this patient is confined to the home and needs intermittent group home care, physical therapy and/or speech therapy, or continues to need occupational therapy. The patient is under my care, and I have initiated the establishment of the plan of care. The patient will be followed by a physician who will periodically review the plan of care. Time Spent With Patient Time: Total time managing care of this patient today ____ minutes.
--- NOTE | 2022-11-07 12:34 | MHC.STROKE ---
I MET WITH THE PATIENT TODAY AND REVIEWED HER DIAGNOSIS WITH HER. SHE IS ON ELIQUIS AND TAKES IT FAITHFULLY, SHE WAS ON 5MG BID AND WAS CHANGED TO A LOWER DOSE. I EXPLAINED WHY SHE WAS GOING TO START ON A STATIN AND REVIEWED HER LIPID PAEL LABS WITH HER. I USED THE STROKE BOOKLET AND POWER POINT SLIDES TO REINFORCE THE EDUCATION. I ANSWERED ALL OF HER QUESTIONS. I ENCOURAGED HER TO CALL 911 IF SYMPTOMS EVER REOCCUR AND WHY. SHE IS VERY HAPPY THAT WE COULD THE TIME TO DISCUSS HER PALN OF CARE.
== END 2022-11-07 17:45 | disposition home or self-care (01) ==
LOC: HO.ED 12:37 → HO.EDOVER 16:27 → HO.IMC 11-05 07:55
PROVIDERS: Physician Assistant; Physician Assistant Medical; Admitting Provider Hospitalist; Emergency Provider Emergency Medicine Emergency Medical Services; PCP Internal Medicine; Visit Provider Internal Medicine
DX: R29.818 Other symptoms and signs involving the nervous system (principal); R03.0 Elevated blood-pressure reading, without diagnosis of hypertension; I73.9 Peripheral vascular disease, unspecified; I48.0 Paroxysmal atrial fibrillation; K21.9 Gastro-esophageal reflux disease without esophagitis; I49.5 Sick sinus syndrome; Z95.0 Presence of cardiac pacemaker; Z79.01 Long term (current) use of anticoagulants; Z79.899 Other long term (current) drug therapy; Z20.822 Contact with and (suspected) exposure to COVID-19
CPT/HCPCS: 0241U; 36415; 70450; 70496; 70498; 71046; 80053; 80061; 81001; 82607; 83735; 84443; 84484; 85025; 85610; 93005; 95816; 97162; 99222; 99285; Q9967

== ENCOUNTER 2023-02-26 15:06 | Outpatient (REF) | payer MEDICARE, SELFPAY ==
--- NOTE | ~2023-02-26 | MM_ITS ---
EXAMINATION: MM SCREENING DIGITAL BREAST TOMOSYNTHESIS, BILATERAL CLINICAL INFORMATION: Screening. Asymptomatic. COMPARISON: Mammography: 02/14/2022, 02/13/2021, 11/13/2019, 10/13/2018 TECHNIQUE: Digital breast tomosynthesis is performed in both the craniocaudal and mediolateral oblique views along with computer-aided detection (CAD). Synthesized 2D images are generated from the tomosynthesis. Additional bilateral MLO views are provided. FINDINGS: The breasts are heterogeneously dense, which may obscure small masses (ACR BI-RADS breast composition Category c). Fibronodular parenchymal pattern is similar to prior studies and there is no developing density or architectural abnormality. There are no significant masses, abnormal calcifications, or other abnormalities. There are bilateral vascular calcifications. There is a chronic dermal lesion overlying upper left breast on MLO view, similar to prior imaging. There is a pacemaker generator overlying the upper left axilla and deodorant artifact overlying upper right axilla, respectively. No significant changes. MM/MM tomosynthesis screening BI IMPRESSION: No mammographic evidence of malignancy. ASSESSMENT: BI-RADS 2: Benign RECOMMENDATION: Routine annual mammography screening. This patient's information was entered into a reminder system with a target due date for their next mammogram.
== END 2023-02-26 15:07 | disposition home or self-care (01) ==
LOC: HO.MAMMO 15:06
PROVIDERS: Visit Provider Internal Medicine
DX: Z12.31 Encounter for screening mammogram for malignant neoplasm of breast (principal)
CPT/HCPCS: 77063; 77067

== ENCOUNTER 2023-07-26 10:17 | Emergency (ER) | payer MEDICARE, SELFPAY ==
--- NOTE | ~2023-07-26 | CT_ITS ---
STUDY: Unenhanced CT of the head and cervical spine INDICATION: Fall, neck pain, patient on Eliquis. COMPARISON: 11/05/2022 TECHNIQUE: Continuous helical imaging obtained through the head and cervical spine without IV contrast. Reconstructed images performed in coronal and sagittal planes. This CT examination was performed using dose optimization techniques as appropriate, variously including the following: *Automated exposure control *Adjustment of mA and/or kV according to patient size (this includes techniques or standardized protocols for targeted exams where dose is matched to indication/reason for exam; i.e. extremities or head) *Use of iterative reconstruction technique TOTAL EXAM DLP: 736 mGy-cm FINDINGS: HEAD: No intracranial hemorrhage, extra-axial fluid collections, or fractures identified. Midline forehead soft tissues are prominent, question bruising/small hematoma. Age related atrophy and periventricular white matter changes. No evolving infarct, mass lesion, mass effect or midline shift. Vascular calcifications. Lens extractions have been performed. CERVICAL SPINE: Straightening of normal lordosis. Minimal anterolisthesis C2 on C3, present on 11/05/2022 CT angiogram. Vertebral body height losses of C5 and C6 are likely degenerative. Multilevel spurring and disc space narrowings, most pronounced C5-C6 and C6-C7. Multilevel hypertrophic facet changes. Moderately severe left C3-C4, moderate right C4-C5 neuroforaminal narrowings. Odontoid is intact. Posterior elements are aligned and no prevertebral soft tissue swelling seen. Right temporomandibular joint space narrowing. Visualized nasopharynx, oropharynx, hypopharyngeal and laryngeal structures within normal limits. Parotid glands are unremarkable. Evaluation of the soft tissues limited without IV contrast. Dense carotid bulb calcifications. Apical scarring. CT/CT cervical spine wo IV con IMPRESSION: No acute intracranial or cervical spine pathology. Question small forehead hematoma, correlate clinically. Cervical spondylosis with neuroforaminal narrowings as described.
[2023-07-26 10:28] VITALS: BP 168/77; PULSE 73; RESP 19; TEMP 36.6; O2SAT 98; BMI 25.4
[2023-07-26 10:39] VITALS: BP 145/78; PULSE 77; RESP 18; O2SAT 97
--- NOTE | 2023-07-26 10:42 | ED_ITS ---
HPI - Head Injury General Chief complaint: Head Injury Stated complaint: fell 07/26, head injury Time Seen by Provider: 07/26/23 10:34 History of Present Illness HPI Narrative: Patient is an 88-year-old female with a history of atrial Eliquis presented today after falling. Patient fell last night on a curb was accidental she tripped. Complaining of pain to the head. There is no loss of consciousness is no nausea no vomiting. There is no fever no chills no focal weakness. Patient presented for further evaluation. Related Data Home Medications Medication Instructions Recorded Confirmed acetaminophen 325 mg tablet 650 mg PO Q4H PRN Pain 11/04/22 11/04/22 apixaban 2.5 mg tablet (Eliquis) 1 tab PO BID 11/04/22 11/04/22 calcium carbonate 600 mg-vitamin 1 tab PO DAILY 11/04/22 11/04/22 D3 10 mcg (400 unit) tablet (Calcium 600 + D(3)) cholecalciferol (vitamin D3) 25 25 mcg PO DAILY 11/04/22 11/04/22 mcg (1,000 unit) capsule (Vitamin D3) multivitamin 1 tab PO QAM 11/04/22 11/04/22 pantoprazole 40 mg tablet,delayed 1 tab PO BID 11/04/22 11/04/22 release polyethylene glycol 3350 17 gram 17 g PO DAILY 11/04/22 11/04/22 oral powder packet (Miralax) pramipexole 0.125 mg tablet 1 tab PO BEDTIME 11/04/22 11/04/22 sennosides 8.6 mg tablet (senna) 17.2 mg PO BEDTIME 11/04/22 11/04/22 tamsulosin 0.4 mg capsule 1 cap PO BEDTIME 11/04/22 11/04/22 Previous Rx's Medication Instructions Recorded atorvastatin 40 mg tablet 40 mg PO BEDTIME #30 tabs 11/07/22 Allergies Allergy/AdvReac Type Severity Reaction Status Date / Time No Known Allergies Allergy Verified 07/26/23 10:26 [No Known Allergies*] Review of Systems 2 Review of Systems: Positive head injury Yes all other systems are reviewed and are negative PMFSH Past Medical History Attestation statement: The following information was validated with the patient. Social History Social History Household Members: None Housing: House Do you presently have visiting nurse or other home services: No Alcohol intake: never Patient Tobacco Use Status: Never used Tobacco Smoked in Last 30 Days: No Use of substances other than those prescribed or required for medical reasons: No Advance Directives: Yes Advance Directives Information Provided: Yes Advance Directives on File: No service: No Physical Exam 2 Vital Signs: Vital Signs: Last Vital Signs Temp 97.8 F 07/26/23 10:47 Pulse 77 07/26/23 10:39 Resp 18 07/26/23 10:39 BP 145/78 H 07/26/23 10:39 Pulse Ox 97 07/26/23 10:39 O2 Del Method Room Air 07/26/23 10:39 BMI result Body Mass Index 25.4 Appearance: Alert. Oriented X3. No acute distress. Positive contusion to the forehead. No laceration noted. No hemotympanum noted. Eyes: Pupils equal, round and reactive to light. ENT: Pharynx normal. Neck: Normal inspection. Neck supple. No lymph nodes noted. No crepitus CVS: Normal heart rate and rhythm. Pulses normal. Normal S1 and S2 Respiratory: No respiratory distress. Breath sounds normal. No Wheezing. No rales. No clavicular tenderness no chest wall tenderness Abdomen: Soft and nontender. No rigidity. No distention. good BS x4 Skin: Skin warm and dry. Normal skin color. Normal skin turgor. Extremities: No lower extremity edema. Neurovascular intact to all extremities. No Lacerations. No Rash Neuro: Oriented X 3. No motor deficit. No sensory deficit. Moving all extermities. No slurred speech Medications Administered Discontinued Medications Generic Name Dose Route Start Last Admin Trade Name Freq PRN Reason Stop Dose Admin Diphtheria/Tetanus/Acell Pertussis 0.5 ml 07/26/23 10:42 07/26/23 11:56 Diphth,Pertus(Acell),Tet Adult 0.5 Ml Syringe IM 07/26/23 10:43 0.5 ml .ONCE ONE Administration Medical Decision Making Medical Decision Making MDM Narrative: Positive history of being on Eliquis with fall positive head trauma will get CT scan of the head and C-spine. Basic labs ordered. CT scan of the head was grossly negative for any acute evidence of bleeding. CT scan of the C-spine showed no acute mild alignment. No fracture. Will discharge patient home head injury precaution continue current meds baseline electrolytes were checked. Differential Diagnosis Differential Diagnoses: The differential diagnosis associated with the presentation includes Intracranial bleed, skull fracture Lab Data MDM Lab Attestation statement: I reviewed the patient's lab results. 07/26/23 11:05 07/26/23 11:05 Labs: Lab Results 07/26/23 Range/Units 11:05 WBC 4.1 L (4.8-10.8) X10*3/uL RBC 3.78 L (4.20-5.50) X10*6/uL Hgb 11.4 L (12.0-16.0) g/dl Hct 33.8 L (37.0-47.0) % MCV 89.4 (80.0-98.0) fL MCH 30.2 (27.0-33.0) pg MCHC 33.7 (31.0-35.0) g/dl RDW 13.6 (11.0-16.0) % Plt Count 179 D (160-400) X10*3/uL MPV 10.4 (9.4-12.3) fL Immature Gran % (Auto) 0.5 H (0.0-0.4) % Neut % (Auto) 67.4 (45-73) % Lymph % (Auto) 20.4 (20-40) % [place] % (Auto) 8.5 (2-11) % Eos % (Auto) 2.2 (0-4) % Baso % (Auto) 1.0 (0-2) % Lymph # (Auto) 0.8 L (1.2-4.9) X10*3/uL [place] # (Auto) 0.4 (0.1-1.2) X10*3/uL Eos # (Auto) 0.1 (0.0-0.4) X10*3/uL Baso # (Auto) 0.0 (0.0-0.2) X10*3/uL Abs Immat Gran (auto) 0.02 (0.00-0.03) X10*3/uL Absolute Neuts (auto) 2.8 (2.0-8.3) x10*3/uL Absolute Nucleated RBC 0.000 (0.0-0.012) X10*3/uL Nucleated RBC % (auto) 0.0 (0.0-0.2) /100WBC Sodium 132 L (135-145) mmol/L Potassium 4.4 (3.3-5.1) mmol/L Chloride 98 (96-108) mmol/L Carbon Dioxide 23 (22-29) mmol/L Anion Gap 15 (12-20) BUN 16 (9-16) mg/dL Creatinine 0.80 (0.5-1.4) mg/dL Estim Creat Clear Calc 40.5 Estimated GFR > 60 Random Glucose 88 (60-115) mg/dL Calcium 9.7 (8.4-10.2) mg/dL Independent Interpretation I performed an independent interpretation of an: CT Scan Interpretation: CT scan of the head was grossly negative for bleeding fracture Radiology Impression Discussion of test interpretation with radiology: I have reviewed the radiologist's reading. Independent Historian Clinical information obtained from an independent historian. History obtained from or confirmed by: Other Family Chronic Conditions History of TIA history of atrial fibrillation on Eliquis Discharge Plan Discharge Clinical Impression: Head injury Patient Disposition: Home, Self-Care Instructions: Head Injury (ED) Prescriptions: No Action multivitamin Tablet 1 tab PO QAM acetaminophen 325 mg Tablet 650 mg PO Q4H PRN (Reason: Pain) polyethylene glycol 3350 [Miralax] 17 gram Powder In Packet 17 g PO DAILY tamsulosin 0.4 mg capsule 1 cap PO BEDTIME pantoprazole 40 mg tablet,delayed release (DR/EC) 1 tab PO BID pramipexole 0.125 mg tablet 1 tab PO BEDTIME cholecalciferol (vitamin D3) [Vitamin D3] 25 mcg (1,000 unit) Capsule 25 mcg PO DAILY calcium carbonate-vitamin D3 [Calcium 600 + D(3)] 600 mg-10 mcg (400 unit) Tablet 1 tab PO DAILY Eliquis 2.5 mg tablet 1 tab PO BID sennosides [senna] 8.6 mg Tablet 17.2 mg PO BEDTIME atorvastatin 40 mg tablet 40 mg PO BEDTIME Qty: 30 0RF Referrals: Andrés Austin MD [Primary Care Provider] - 07/29/23
[2023-07-26 10:47] VITALS: TEMP 36.6
--- NOTE | 2023-07-26 10:47 | PC.NURSE ---
Patient reports was leaving a wake yesterday and tripped on the sidewalk and hit her head. Reports large amount of bleeding from lacerations on forehead. reports a headache that started after hitting head. 2 small cuts and an abrasion noted on forehead. Areas cleaned and left open to area. No bleeding from site. Son at bedside. Off to CT at this time
[2023-07-26 11:09] LABS: MANUAL DIFF FLAG NO
[2023-07-26 11:19] LABS: Eosinophils Absolute Auto 0.1 X10*3/uL (0.0-0.4); Eosinophils Percent Auto 2.2 % (0-4); Hematocrit 33.8 % (37.0-47.0); Hemoglobin 11.4 g/dl (12.0-16.0); Imm Gran Abs Auto 0.02 X10*3/uL (0.00-0.03); Imm Gran Pct Auto 0.5 % (0.0-0.4); Lymphocytes Absolute Auto 0.8 X10*3/uL (1.2-4.9); Lymphocytes Percent Auto 20.4 % (20-40); Mean Corpuscular HGB Conc 33.7 g/dl (31.0-35.0); Mean Corpuscular Hemoglobin 30.2 pg (27.0-33.0); Mean Corpuscular Volume 89.4 fL (80.0-98.0); Mean Platelet Volume 10.4 fL (9.4-12.3); Monocytes Absolute Auto 0.4 X10*3/uL (0.1-1.2); Monocytes Percent Auto 8.5 % (2-11); Neutrophils Absolute Auto 2.8 x10*3/uL (2.0-8.3); Neutrophils Percent Auto 67.4 % (45-73); Platelet Count 179 X10*3/uL (160-400); Red Blood Count 3.78 X10*6/uL (4.20-5.50); Red Cell Distribution Width 13.6 % (11.0-16.0); White Blood Count 4.1 X10*3/uL (4.8-10.8)
[2023-07-26 11:32] LABS: Anion Gap 15 (12-20); Blood Urea Nitrogen 16 mg/dL (9-16); Calcium 9.7 mg/dL (8.4-10.2); Carbon Dioxide 23 mmol/L (22-29); Chloride 98 mmol/L (96-108); Creatinine Clr Calc Pharmacy 40.5; Estimated Glomerular Filt Rate > 60; Glucose Random 88 mg/dL (60-115); Potassium 4.4 mmol/L (3.3-5.1); Sodium 132 mmol/L (135-145)
[2023-07-26] MEDS: Diphth,Pertus(ACell),Tet Adult 0.5 ML SYRINGE IM (11:56)
== END 2023-07-26 14:49 | disposition home or self-care (01) ==
PROVIDERS: Emergency Provider Emergency Medicine Emergency Medical Services; PCP Internal Medicine
DX: S09.90XA Unspecified injury of head, initial encounter (principal); S00.91XA Abrasion of unspecified part of head, initial encounter; R51.9 Headache, unspecified; I48.91 Unspecified atrial fibrillation; M54.2 Cervicalgia; W01.0XXA Fall on same level from slipping, tripping and stumbling without subsequent striking against object, initial encounter; Y93.9 Activity, unspecified; Y92.9 Unspecified place or not applicable; Y99.9 Unspecified external cause status; Z79.01 Long term (current) use of anticoagulants; Z79.899 Other long term (current) drug therapy; Z23 Encounter for immunization
CPT/HCPCS: 36415; 70450; 72125; 80048; 85025; 90471; 90715; 99284

== ENCOUNTER 2023-08-01 09:04 | Outpatient (REF) | payer MEDICARE, SELFPAY ==
[2023-08-01 11:50] LABS: Anion Gap 15 (12-20); Blood Urea Nitrogen 14 mg/dL (9-16); Calcium 9.4 mg/dL (8.4-10.2); Carbon Dioxide 26 mmol/L (22-29); Chloride 96 mmol/L (96-108); Estimated Glomerular Filt Rate > 60; Potassium 4.2 mmol/L (3.3-5.1); Sodium 133 mmol/L (135-145)
== END 2023-08-01 09:05 | disposition home or self-care (01) ==
LOC: HO.HMGCLDS 09:04
PROVIDERS: Visit Provider Internal Medicine Nephrology
DX: E87.1 Hypo-osmolality and hyponatremia (principal); I10 Essential (primary) hypertension
CPT/HCPCS: 36415; 80051; 81001; 82310; 82565; 82570; 84156; 84520

== ENCOUNTER 2023-11-08 11:25 | Outpatient (AMB) | payer MEDICARE, SELFPAY ==
[2023-11-08 12:05] VITALS: BP 130/70; PULSE 77; TEMP 36.7; O2SAT 97; BMI 25.6
--- NOTE | 2023-11-08 12:05 | AM.OFFWIN_ITS ---
Intake Vital Signs 11/08/23 12:05 Height 5 ft Weight 131 lb BMI 25.6 BP 130/70 Blood Pressure Location Lt brachial Position Sitting Pulse 77 Pulse Source Pulse Oximeter Temp 98.0 F Temp Source Temporal Artery Scan Pulse Oximetry (%) 97 Oxygen Delivery Method Room Air Intake Visit Reasons: [employer]/right hand pain (lobby) Intake Note: pt is here today for rt hand pain started Patient Tobacco Use Status: Never used Tobacco Allergies No Known Allergies [No Known Allergies*] Allergy (Verified 11/08/23 12:06) Do you need a note to return to daycare/school/sports/work: No HPI HPI Comments History of Present Illness Details 88 y/o female who presents to [facility] with c/o right hand pain since this morning. Pt reports waking up this AM with throbbing pain on her right hand/wrist. Denies numbness or tingling. Limited ROM due to pain. Skin color and Temp WNL. Denies swelling or edema. Denies injury or trauma. She rates her pain at 8/10 on pain scale. She has not taken any OTC pain medications. [facility] Social History Household Members: None Housing: House Do you presently have visiting nurse or other home services: No Alcohol intake: never Comment: refusing alarms Patient Tobacco Use Status: Never used Tobacco service: No Review of Systems Const All systems reviewed & are unremarkable except as noted in HPI and below Physical Exam Vital Signs: Last Vital Signs Temp 98.0 F 11/08/23 12:05 Pulse 77 11/08/23 12:05 BP 130/70 11/08/23 12:05 Pulse Ox 97 11/08/23 12:05 Oxygen Delivery Method Room Air 11/08/23 12:05 BMI result Body Mass Index 25.6 Const General: no acute distress Extrem Right upper extremity: normal to inspection, full ROM (limited ROM due to pain), normal capillary refill and Extremity exam: right hand Details: normal to inspection, normal capillary refill, neuromotor exam normal, neurosensory exam normal, tenderness Location: of the dorsal hand and normal ROM of fingers; no unusual warmth, no swelling, swelling and no lacerations; no cyanosis, no edema and joint enlargement noted Left upper extremity: normal to inspection, full ROM, normal capillary refill and hand Details: normal to inspection, normal capillary refill, neuromotor exam normal, neuromotor exam abnormal, tendon exam normal and normal ROM of fingers; no tenderness; no cyanosis, no edema and joint enlargement noted Assessment & Plan Assessment & Plan (1) Right hand pain: Code(s): M79.641 - Pain in right hand Plan: - Xray right hand/wrist r/o Fx - Ibuprofen/Acetaminophen for pain - Rest hand, applied wrist brace and wrapped hand with Oscar bandage. - Apply Heat/ice on off for 20 minutes. COMFORT FORM WRIST RT HAND: LOT # [id number] Orders: Orders XR hand wrist RT Today M79.641 - Pain in right hand Medications: New acetaminophen 650 mg (2 x 325 mg) PO Q4H PRN 30 tabs 0RF Pain M79.641 - Pain in right hand Coding Level of Care Code Est Pt Level 3 (87068) Diagnoses Right hand pain M79.641 Time Spent (min) 15
== END 2023-11-08 13:18 | disposition home or self-care (01) ==
PROVIDERS: PCP Internal Medicine; Visit Provider Nurse Practitioner Family
DX: M79.641 Pain in right hand (principal)
CPT/HCPCS: 99213

== ENCOUNTER 2023-11-08 12:33 | Outpatient (REF) | payer MEDICARE, SELFPAY ==
--- NOTE | ~2023-11-08 | XR_ITS ---
EXAMINATION: XR HAND-WRIST, RIGHT CLINICAL INFORMATION: Pain COMPARISON: None available. TECHNIQUE: Right hand and wrist, 3 views FINDINGS: There is chondrocalcinosis of the triangular fibrocartilage. Carpal bones are intact and have normal alignment. At the first carpometacarpal joint, there is severe loss of the joint space with subarticular sclerosis and osteophytosis. There are varying degrees of osteoarthritis of the metacarpophalangeal joints. The joint degeneration is severe at the index finger MCP joint (as manifest by severe loss of the joint space, prominent subchondral cysts and large osteophytes). There are varying degrees of osteoarthritis of the interphalangeal joints, including at least moderate osteoarthritis of the 5th PIP joint where there are prominent marginal osteophytes and subchondral cystic change in the head of the proximal phalanx. No erosions or periostitis. Peripheral vascular calcifications are seen in the forearm. XR/XR hand wrist RT IMPRESSION: * No acute osseous injury in the right hand or wrist. * Chondrocalcinosis of the triangular fibrocartilage. 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 Otherwise, there is mild and moderate osteoarthritis of other metacarpophalangeal and interphalangeal joints.
== END 2023-11-08 12:34 | disposition home or self-care (01) ==
LOC: HO.HMGCX 12:33
PROVIDERS: PCP Internal Medicine; Visit Provider Nurse Practitioner Family
DX: M79.641 Pain in right hand (principal)
CPT/HCPCS: 73110; 73130

== ENCOUNTER 2024-03-02 11:23 | Outpatient (REF) | payer MEDICARE, SELFPAY | END 2024-03-02 11:24 | disposition home or self-care (01) | LOC: HO.MAMMO 11:23 | PROVIDERS: PCP Internal Medicine; Visit Provider Internal Medicine | DX: Z12.31 Encounter for screening mammogram for malignant neoplasm of breast (principal) | CPT/HCPCS: 77063; 77067 ==

== ENCOUNTER → 2024-03-02 11:45 | Outpatient (BNV) | payer MEDICARE, SELFPAY | PROVIDERS: PCP Internal Medicine; Visit Provider Radiology Diagnostic Radiology | DX: Z12.31 Encounter for screening mammogram for malignant neoplasm of breast (principal) | CPT/HCPCS: 77063; 77067 ==

== ENCOUNTER 2024-04-10 11:21 | Outpatient (REF) | payer MEDICARE, SELFPAY ==
[2024-04-13 14:44] LABS: Anti Nuclear Antibody Screen NEGATIVE (NEGATIVE)
[2024-04-14 22:13] LABS: Prot Elec - Albumin 4.2 g/dL (3.8-4.8); Prot Elec - Alpha1 0.3 g/dL (0.2-0.3); Prot Elec - Alpha2 0.7 g/dL (0.5-0.9); Prot Elec - Beta 1 0.4 g/dL (0.4-0.6); Prot Elec - Beta 2 0.3 g/dL (0.2-0.5); Prot Elec - Gamma 0.9 g/dL (0.8-1.7); Prot Elec - Total Protein 6.8 g/dL (6.1-8.1)
== END 2024-04-10 11:22 | disposition home or self-care (01) ==
LOC: HO.LAB 11:21
PROVIDERS: PCP Internal Medicine; Visit Provider Psychiatry & Neurology Neurology
DX: G62.9 Polyneuropathy, unspecified (principal); R41.3 Other amnesia
CPT/HCPCS: 36415; 84165; 86038

== ENCOUNTER 2024-06-03 10:02 | Outpatient (REF) | payer MEDICARE, SELFPAY ==
--- NOTE | ~2024-06-03 | CT_ITS ---
EXAMINATION: CT ANGIOGRAM HEAD CT ANGIOGRAM NECK CLINICAL INFORMATION: ANEURYSM COMPARISON: CT head July 26, 2023 and CTA November 05, 2022 TECHNIQUE: Test bolus sequences followed by intravenous administration 70 mL of Omnipaque 350. Helical imaging was performed in the axial plane from the aortic arch to the skull vertex. Delayed postcontrast imaging of the head was also performed. The data was processed at the sonography technologist's workstation for generation of MIP sequences. Angled MIPs and volume rendered reformatted images were also generated at an offline 3D workstation. Stenoses are assessed in accordance with Aguilar et al. Quantification of Carotid Stenosis on CT Angiography. AJR 2006. 27(1):13-19. [address] CT examination was performed using dose optimization techniques as appropriate, variously including the following: *Automated exposure control *Adjustment of mA and/or kV according to patient size (this includes techniques or standardized protocols for targeted exams where dose is matched to indication/reason for exam; i.e. extremities or head) *Use of iterative reconstruction technique DLP: 2362 mGy-cm FINDINGS: CT HEAD: Redemonstrated moderate global cerebral volume loss and nonspecific white matter disease, presumably advanced chronic microangiopathy. No territorial loss of cardona-white differentiation. No acute intracranial hemorrhage or extra-axial fluid collection. No mass lesion, significant mass effect, or herniation pattern. No pathologic intra-axial enhancement or regional oligemia. The orbits are grossly normal. Paranasal sinuses and mastoid air cells are well aerated. Are bilateral TMJ osteoarthrosis. CTA HEAD: No hemodynamically significant stenosis or occlusion in the anterior or posterior circulation. final operations technician. Extradural origin of the left PICA. 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 Stable laterally projecting extradural aneurysm arising from the right cavernous ICA measuring 3 mm. No other new or enlarging intracranial saccular aneurysms. Timing of the contrast bolus allows assessment of the major dural venous sinuses, which all opacify normally CTA NECK: Classic 3 vessel branching pattern of the aortic arch. The aortic arch is partially excluded from the [id number]. Mild calcific plaque along the aortic arch and left subclavian artery origin. Origins of the great vessels are widely patent. The common carotid arteries are widely patent. The plaque at the carotid bifurcations without stenosis. The internal carotid arteries are widely patent. The left vertebral artery is dominant. The vertebral artery ostia are widely patent. Both vertebral arteries are widely patent throughout their extracranial cervical course. CT NECK: Enlarged pulmonary artery that can be correlated for pulmonary hypertension. Torus mandibulari. Left chest wall pacemaker in place. Redemonstrated cervical spondylosis. Apparent heterogeneity of the thyroid gland, noting streak artifact limits assessment. CT/CT angio head neck IMPRESSION: 1. No acute intracranial findings. Stable chronic findings as above. 2. 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 3. No acute arterial occlusion or hemodynamically significant stenosis within the head or neck. 4. 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 5. Enlarged pulmonary artery that can be correlated for pulmonary hypertension. Electronically signed by: Lexi Espinoza MD 06/18/2024 04:22 PM EDT
[2024-06-03] MEDS: iohexoL 350 MG/ML 75 ML INFUS..BTL 70 ML IV (11:00)
[2024-06-08 08:42] LABS: Creatinine POC 0.8 mg/dL (0.5-1.4); GFR POC > 60
== END 2024-06-03 10:03 | disposition home or self-care (01) ==
LOC: HO.CT 10:02
PROVIDERS: Absent Provider Nurse Practitioner Family; PCP Internal Medicine; Visit Provider Internal Medicine
DX: I72.0 Aneurysm of carotid artery (principal)
CPT/HCPCS: 70496; 70498; 82565; Q9967

== ENCOUNTER 2024-09-25 09:34 | Outpatient (REF) | payer MEDICARE, SELFPAY | END 2024-09-25 09:35 | disposition home or self-care (01) | LOC: HO.XRAY 09:34 | PROVIDERS: PCP Internal Medicine; Visit Provider Physical Medicine & Rehabilitation | DX: M47.812 Spondylosis without myelopathy or radiculopathy, cervical region (principal) | CPT/HCPCS: 72050 ==

== ENCOUNTER 2025-03-13 14:41 | Emergency (ER) | payer MEDICARE, SELFPAY ==
--- NOTE | ~2025-03-13 | CT_ITS ---
CLINICAL HISTORY: fall CT cervical spine without contrast Comparison: 07/26/2023 10:47 AM EDT: CT Findings: There is straightening of the normal cervical lordosis. No fracture or acute malalignment. Multilevel degenerative changes with disc space narrowing throughout the cervical spine. There is endplate sclerotic change and marginal osteophyte formation. The facet joints are normally imbricated. No prevertebral soft tissue edema. Lung apicies demonstrate no acute process. Impression: Multilevel degenerative changes without evidence of acute fracture or acute malalignment. This document has been electronically signed by: Javad Monk MD on 03/13/2025 16:42:45
--- NOTE | ~2025-03-13 | CT_ITS ---
CLINICAL HISTORY: fall, head strike, on eliquis CT head without contrast Comparison: CT/SR - CT HEAD/BRAIN WO IV CON - 07/26/23 10:47 EDT Findings: No evidence of acute territorial infarct. There is patchy low density in the periventricular and subcortical white matter. Diffuse volume loss is noted. No hydrocephalus. No hemorrhage, mass effect, mass lesion or midline shift. No abnormal extra-axial fluid. No calvarial fracture. Paranasal sinuses and mastoid air cells are clear. Impression: No evidence of an acute intracranial process. Chronic changes as detailed. This document has been electronically signed by: Javad Monk MD on 03/13/2025 16:36:26
[2025-03-13 14:54] VITALS: BP 158/71; PULSE 72; RESP 20; TEMP 36.1; O2SAT 98; BMI 26.0
--- NOTE | 2025-03-13 14:56 | ED_ITS ---
HPI - Head Injury General Chief complaint: Fall Stated complaint: Fall - head injury. Diarrhea Time Seen by Provider: 03/13/25 16:00 History of Present Illness ED Provider: Manoj MOE Narrative: The patient is an 89-year-old woman who lives alone in her own home. She says that she woke up this morning and became nauseated and had vomiting and diarrhea after taking her morning medications but before eating any breakfast. She says that she had multiple episodes of vomiting and diarrhea throughout the morning. She had no significant abdominal pain associated with this. No definite fever. She was walking in her house, going down a small stair case of 5 steps (the house this a split-level rash) when she lost her balance and fell. She struck the back of her head. She had no loss of consciousness. She has no amnesia to the episode. She called her son and described her symptoms. Her son called their PCP and advised him to bring her to the emergency room. The son went to the home and picked her up and drove her to the hospital. While waiting to be seen she is feeling somewhat better from the point of view of her nausea. She apparently had some water just before arriving in the emergency room and she has not had any ongoing vomiting or diarrhea. No abdominal pain. She is feeling hungry. She has some head pain at the back of her head. She has some minimal neck pain. No chest pain or shortness of breath. Related Data Home Medications ?Medication ?Instructions ?Recorded ?Confirmed apixaban 2.5 mg tablet (Eliquis) 1 tab PO BID 11/04/22 11/04/22 calcium 600 mg (as 1 tab PO DAILY 11/04/22 11/04/22 carbonate)-vitamin D3 10 mcg (400 unit) tablet (Calcium 600 + D(3)) cholecalciferol (vitamin D3) 25 25 mcg PO DAILY 11/04/22 11/04/22 mcg (1,000 unit) capsule (Vitamin D3) multivitamin 1 tab PO QAM 11/04/22 11/04/22 pantoprazole 40 mg tablet,delayed 1 tab PO BID 11/04/22 11/04/22 release polyethylene glycol 3350 17 gram 17 g PO DAILY 11/04/22 11/04/22 oral powder packet (Miralax) pramipexole 0.125 mg tablet 1 tab PO BEDTIME 11/04/22 11/04/22 sennosides 8.6 mg tablet (senna) 17.2 mg PO BEDTIME 11/04/22 11/04/22 tamsulosin 0.4 mg capsule 1 cap PO BEDTIME 11/04/22 11/04/22 Previous Rx's ?Medication ?Instructions ?Recorded atorvastatin 40 mg tablet 40 mg PO BEDTIME #30 tabs 11/07/22 acetaminophen 325 mg tablet 650 mg (2 x 325 mg) PO Q4H PRN 11/08/23 Pain #30 tabs Allergies Allergy/AdvReac Type Severity Reaction Status Date / Time No Known Allergies Allergy Verified 03/13/25 14:57 [No Known Allergies*] Review of Systems 2 Review of Systems: Yes all other systems are reviewed and are negative [facility] Social History Social History Household Members: None Housing: House Do you presently have visiting nurse or other home services: No Alcohol intake: never Comment: refusing alarms Patient Tobacco Use Status: Never used Tobacco Smoked in Last 30 Days: No Use of substances other than those prescribed or required for medical reasons: No Advance Directives: No Advance Directives Information Provided: Yes service: No Physical Exam 2 Vital Signs: Vital Signs: Last Vital Signs Temp 98.0 F 03/13/25 17:50 Pulse 65 03/13/25 17:50 Resp 18 03/13/25 17:50 BP 146/68 H 03/13/25 17:50 Pulse Ox 100 03/13/25 17:50 O2 Del Method Room Air 03/13/25 17:50 BMI result Body Mass Index 26.0 Const: Other: The patient is awake, alert, pleasant, cooperative. She does not appear in obvious distress. HEENT: Other: Face is symmetrical, mucous membranes moist, there is some occipital tenderness. No raccoon eyes. No ryder sign. Eyes: General: appearance normal, both eyes and all related structures Neck: Other: Minimal posterior midline C-spine tenderness. Minimal pain with range of motion of the neck. No JVD. Resp: Effort & Inspection: normal respiratory effort Auscultation: clear to auscultation bilaterally Cardio: Rate: regular rate Rhythm: regular rhythm Heart sounds: S1 normal heart sound present and S2 normal heart sound present GI: Other: The abdomen is soft and nontender Back/Spine/Pelvis: Other: No vertebral tenderness in the midline. Skin: Other: Skin is intact and unremarkable. Neuro: Other: The patient is awake and alert with a GCS of 15. Cranial nerves 2-12 are intact. She moves her extremities normally and appropriately. Extrem: Other: No peripheral edema Course Course Course Narrative: Quincy Calixto BALLOON DESIGN PRINTER 03/13 6300 This is a rapid medical exam. Deferred additional HPI, ROS, PE to primary provider. 89 yo female with history of afib on eliquis here with complaints of fall with head strike. No LOC. Had BARGER which seems improved. Will obtain CT head/cervical spine VSS Medical Decision Making Medical Decision Making MDM Narrative: The patient is an 89-year-old woman who is ordinarily in fairly good health, quite functional, and who lives alone. She reports having vomiting and diarrhea several times this morning, possibly more diarrhea than vomiting. She does not have any significant abdominal pain associated with this and had no fever associated with this. However she did slip and fall while she was going down a small stair case in her house and hit the back of her head. There was no loss of consciousness. She is on apixaban. It seems quite clear that this was a mechanical fall, not syncope. She has no amnesia to the episode. There were no neurological symptoms associated with the fall. She called her son who called the PCP office and advised them to come to the emergency room. She was driven here by private vehicle. Here she looks well. Her symptoms of nausea, vomiting, and diarrhea seemed to have abated spontaneously. She has had no vomiting or diarrhea while waiting to be seen in the emergency room and she no longer feels nauseated. She says she is feeling hungry and has already tolerated some water. A noncontrast head CT is negative for skull fracture or intracranial hemorrhage. A noncontrast CT of the cervical spine shows chronic degenerative changes without acute injuries. EKG is unchanged. CBC, BMP, and LFTs are unremarkable. She tolerated lovely iris in the emergency room and was eager for discharge. She was discharged with her son. Lab Data 03/13/25 16:43 03/13/25 16:43 Labs: Lab Results 03/13/25 Range/Units 16:43 WBC 5.6 (4.8-10.8) X10*3/uL RBC 4.08 L (4.20-5.50) X10*6/uL Hgb 12.0 (12.0-16.0) g/dl Hct 35.5 L (37.0-47.0) % MCV 87.0 (80.0-98.0) fL MCH 29.4 (27.0-33.0) pg MCHC 33.8 (31.0-35.0) g/dl RDW 13.4 (11.0-16.0) % Plt Count 178 (160-400) X10*3/uL MPV 10.0 (9.4-12.3) fL Immature Gran % (Auto) 0.4 (0.0-0.4) % Neut % (Auto) 86.5 H (45-73) % Lymph % (Auto) 9.4 L (20-40) % Cascade % (Auto) 3.2 (2-11) % Eos % (Auto) 0.0 (0-4) % Baso % (Auto) 0.5 (0-2) % Lymph # (Auto) 0.5 L (1.2-4.9) X10*3/uL Cascade # (Auto) 0.2 (0.1-1.2) X10*3/uL Eos # (Auto) 0.0 (0.0-0.4) X10*3/uL Baso # (Auto) 0.0 (0.0-0.2) X10*3/uL Abs Immat Gran (auto) 0.02 (0.00-0.03) X10*3/uL Absolute Neuts (auto) 4.9 (2.0-8.3) x10*3/uL Absolute Nucleated RBC 0.000 (0.0-0.012) X10*3/uL Nucleated RBC % (auto) 0.0 (0.0-0.2) /100WBC Sodium 131 L (135-145) mmol/L Potassium 4.2 (3.3-5.1) mmol/L Chloride 96 (96-108) mmol/L Carbon Dioxide 25 (22-29) mmol/L Anion Gap 14 (12-20) BUN 11 (9-16) mg/dL Creatinine 0.70 (0.5-1.4) mg/dL Estim Creat Clear Calc 43.2 Estimated GFR > 60 Random Glucose 126 H (60-115) mg/dL Calcium 10.3 H D (8.4-10.2) mg/dL Magnesium 2.1 (1.6-2.6) mg/dL Total Bilirubin 0.6 (0.0-1.0) mg/dL Direct Bilirubin 0.3 (0.0-0.5) mg/dL AST 34 H (5-31) U/L ALT 10 (0-31) U/L Alkaline Phosphatase 76 (39-117) U/L Total Protein 7.1 (6.5-8.0) g/dL Albumin 4.3 (3.5-5.0) g/dL Independent Interpretation I performed an independent interpretation of an: EKG (EKG at 1632 shows normal sinus rhythm at 66 beats per minute. There is a right bundle branch block. No change from previous.) Discharge Plan Discharge Clinical Impression: Fall, Head injury, Vomiting and diarrhea Patient Disposition: Home, Self-Care Additional Instructions: Your testing in the emergency room today has been reassuring. Please continue your regular medications. Eat a light diet tonight with things like toast and well cooked rice. For fluids use clear fluids only. Plan on following up with your regular doctor soon to discuss this episode further. If you feel significantly worse at any time please return to the emergency room for additional evaluation. Prescriptions: No Action multivitamin Tablet 1 tab PO QAM polyethylene glycol 3350 [Miralax] 17 gram Powder In Packet 17 g PO DAILY tamsulosin 0.4 mg capsule 1 cap PO BEDTIME pantoprazole 40 mg tablet,delayed release (DR/EC) 1 tab PO BID pramipexole 0.125 mg tablet 1 tab PO BEDTIME cholecalciferol (vitamin D3) [Vitamin D3] 25 mcg (1,000 unit) Capsule 25 mcg PO DAILY calcium carbonate-vitamin D3 [Calcium 600 + D(3)] 600 mg-10 mcg (400 unit) Tablet 1 tab PO DAILY Eliquis 2.5 mg tablet 1 tab PO BID sennosides [senna] 8.6 mg Tablet 17.2 mg PO BEDTIME atorvastatin 40 mg tablet 40 mg PO BEDTIME Qty: 30 0RF acetaminophen 325 mg tablet 650 mg PO Q4H PRN (Reason: Pain) Qty: 30 0RF Referrals: Andrés Austin MD [Primary Care Provider] - Interventions: ED Discharge Assessment Last Done: 03/13/25 17:50 Discharge Date/Time: 03/13/25 17:50 Print Language: Italian
--- NOTE | 2025-03-13 16:11 | ECG_ITS ---
Test Reason : FALL Blood Pressure : */* mmHG Vent. Rate : 66 BPM Atrial Rate : 66 BPM P-R Int : 168 ms QRS Dur : 130 ms QT Int : 444 ms P-R-T Axes : 86 13 40 degrees QTcB Int : 465 ms Normal sinus rhythm Right bundle branch block Abnormal ECG When compared with ECG of 04-Nov-2022 12:25, No significant change was found Referred By: Tai Aranda Electronically Signed By: BECKY DAVENPORT MD
[2025-03-13 16:47] LABS: MANUAL DIFF FLAG NO
[2025-03-13 17:01] LABS: Alanine Aminotransferase 10 U/L (0-31); Albumin Level 4.3 g/dL (3.5-5.0); Alkaline Phosphatase 76 U/L (39-117); Anion Gap 14 (12-20); Aspartate Amino Transferase 34 U/L (5-31); Bilirubin Direct 0.3 mg/dL (0.0-0.5); Bilirubin Total 0.6 mg/dL (0.0-1.0); Blood Urea Nitrogen 11 mg/dL (9-16); Calcium 10.3 mg/dL (8.4-10.2); Carbon Dioxide 25 mmol/L (22-29); Chloride 96 mmol/L (96-108); Creatinine Clr Calc Pharmacy 43.2; Estimated Glomerular Filt Rate > 60; Glucose Random 126 mg/dL (60-115); Magnesium 2.1 mg/dL (1.6-2.6); Potassium 4.2 mmol/L (3.3-5.1); Sodium 131 mmol/L (135-145); Total Protein 7.1 g/dL (6.5-8.0)
[2025-03-13 17:20] LABS: Basophils Percent Auto 0.5 % (0-2); Hematocrit 35.5 % (37.0-47.0); Imm Gran Abs Auto 0.02 X10*3/uL (0.00-0.03); Imm Gran Pct Auto 0.4 % (0.0-0.4); Lymphocytes Absolute Auto 0.5 X10*3/uL (1.2-4.9); Lymphocytes Percent Auto 9.4 % (20-40); Mean Corpuscular HGB Conc 33.8 g/dl (31.0-35.0); Mean Corpuscular Hemoglobin 29.4 pg (27.0-33.0); Monocytes Absolute Auto 0.2 X10*3/uL (0.1-1.2); Monocytes Percent Auto 3.2 % (2-11); Neutrophils Absolute Auto 4.9 x10*3/uL (2.0-8.3); Neutrophils Percent Auto 86.5 % (45-73); Platelet Count 178 X10*3/uL (160-400); Red Blood Count 4.08 X10*6/uL (4.20-5.50); Red Cell Distribution Width 13.4 % (11.0-16.0); White Blood Count 5.6 X10*3/uL (4.8-10.8)
[2025-03-13 17:48] VITALS: BP 146/68; PULSE 65; RESP 18; TEMP 36.7; O2SAT 100
[2025-03-13 17:50] VITALS: BP 146/68; PULSE 65; RESP 18; TEMP 36.7; O2SAT 100
== END 2025-03-13 17:50 | disposition home or self-care (01) ==
PROVIDERS: Emergency Provider Emergency Medicine; PCP Internal Medicine
DX: S09.90XA Unspecified injury of head, initial encounter (principal); W19.XXXA Unspecified fall, initial encounter; Y93.9 Activity, unspecified; Y92.9 Unspecified place or not applicable; Y99.9 Unspecified external cause status; R11.2 Nausea with vomiting, unspecified; R19.7 Diarrhea, unspecified; Z79.899 Other long term (current) drug therapy
CPT/HCPCS: 36415; 70450; 72125; 80048; 80076; 83735; 85025; 93005; 99284; 99285

== ENCOUNTER → 2025-03-13 14:57 | Outpatient (BNV) | payer MEDICARE, SELFPAY | PROVIDERS: Emergency Provider Emergency Medicine; PCP Internal Medicine; Visit Provider Radiology Vascular & Interventional Radiology | DX: M50.30 Other cervical disc degeneration, unspecified cervical region (principal); S09.90XA Unspecified injury of head, initial encounter; W19.XXXA Unspecified fall, initial encounter | CPT/HCPCS: 70450; 72125 ==

== ENCOUNTER → 2025-03-13 16:11 | Outpatient (BNV) | payer MEDICARE, SELFPAY | PROVIDERS: Emergency Provider Emergency Medicine; PCP Internal Medicine; Visit Provider Internal Medicine Cardiovascular Disease | DX: I45.10 Unspecified right bundle-branch block (principal) | CPT/HCPCS: 93010 ==

== ENCOUNTER 2025-03-29 12:41 | Outpatient (REF) | payer MEDICARE, SELFPAY ==
--- OUTSIDE RECORDS SUMMARY | 2025-03-29 13:38 | XMS_ITS | Data Portability ---
Author Organization [facility] [id number] Address [address] [place] [address] Care Team Providers Care Outside Sales Executive Name Role Phone NANCY CASANOVA Primary Care Provider Assessment No assessment recorded. Plan of Treatment Reminders Order Date Submit Date Provider Last Modified By Organization Details Last Modified Time Details Appointments None record ed. Lab None record ed. Referral None record ed. Procedures None record ed. Surgeries None record ed. Imaging None record ed. Medication Orders None record ed. Patient TargetsNo targets recorded. Patient InstructionsNo instructions recorded. Reason for Referral None Reported. Problems Name Problem SNOMED Code Status Onset Date Resolution Date Notes Provider Name and Address Organization Details Recorded Time Transient cerebral ischemia 619985854 Active 2022 DIPTI SANDRA null, [place] - [facility] 3 08:45:08 Hyperlipidemia 17694048 Active 2022 DIPTI FLORES null, [place] - [facility] 3 08:49:03 Problem Notes None recorded. Procedures Surgical History Date Name Laterality Status Provider Name and Address Organization Details Recorded Time 3 Cerumen Removal by Irrigation completed DIPTI SANDRA [place] - [facility] 01/19/2023 09:18:17 1 cardiac pacemaker procedure completed DIPTI SANDRA [place] - [facility] 01/19/2023 08:48:24 operation on lumbar spine completed DIPTI SANDRA [place] - [facility] 01/19/2023 08:48:02 Imaging Results None recorded. Procedure Notes None recorded. Medical Equipment None Reported. Allergies No known drug allergies Medications Name Sig Start Date Stop Date Status Note LastModified by Organization Details LastModified Time atorvastatin 40 mg tablet Take 1 tablet every day by oral route. active Not Available Not Available No t Available pantoprazole 20 mg tablet,delayed release Take 2 tablets every day by oral route. active Not Available Not Available No t Available tamsulosin 0.4 mg capsule Take 1 capsule every day by oral route. active Not Available Not Available No t Available sertraline active Not Available Not Av ailable Not Available senna active Not Available Not Availa ble Not Available calcium active Not Available Not Avail able Not Available pramipexole active Not Available Not A vailable Not Available Vitamin D3 active Not Available Not Av ailable Not Available Eliquis 2.5 mg tablet Take 1 tablet twice a day by oral route. active Not Available Not Available No t Available Vitals Date Recorded Body height Body mass index (BMI) Body weight Oxygen saturation Oxygen saturation in Arterial blood by Pulse oximetry Heart rate Respiratory rate Body temperature Systolic blood pressure Diastolic blood pressure Provider Name and Address Organization Details Last Updated DateTime 3 151.13 cm 25 kg/m2 71192.6 4 g 99 % 99 % 68 /min 16 /min 98 [degF] 134 mm[Hg] 74 mm[Hg] DIPTI FLORES [place] [facility] 08:52:21 Social History Question Answer Notes LastModified by [employer] [facility] Details LastModified Time Tobacco Smoking Status Never Smoker DIPTI aguilra [employer] 01/19/2023 08:50:01 Have You Recently Traveled Abroad? No Information not available 01/19/2023 Sex: Unknown Functional Status Question Answer Note LastModified by [facility] [facility] Details LastModified Time Do you use any illicit or recreational drugs? No Information not available 01/19/2023 Do you or have you ever used any other forms of tobacco or nicotine? No Information not available 01/19/2023 What is your level of alcohol consumption? None Information not available 01/19/2023 Are you currently employed? No Information not available 01/19/2023 Mental Status None recorded. Family History Nothing Reported. Medical History No medical history recorded. Gynecological HistoryNo gynecological history recorded. Obstetrics History GPAL:G 0 P 0 0 0 0 Immunizations Vaccine Type Date Status Note Provider Nam e and Address Organization Details Recorded Time zoster recombinant 9 completed DIPTI SANDRA null, [place] - [facility] 01/19/2023 08:44:21 zoster recombinant 9 completed DIPTI SANDRA null, [place] - [facility] 01/19/2023 08:44:21 Influenza, high-dose, quadrivalent, PF 0 completed DIPTI SANDRA null, [place] - [facility] 01/19/2023 08:44:21 Influenza, high-dose, quadrivalent, PF 2 completed DIPTI SANDRA null, [place] - [facility] 01/19/2023 08:44:21 Influenza, adjuvanted, quadrivalent, PF 1 completed DIPTI SANDRA null, [place] - [facility] 01/19/2023 08:44:21 COVID-19, mRNA, LNP-S, PF, 30 mcg/0.3 mL dose 1 completed DIPTI SANDRA null, [place] - [facility] 01/19/2023 08:44:21 COVID-19, mRNA, LNP-S, PF, 30 mcg/0.3 mL dose 1 completed DIPTI SANDRA null, [place] - [facility] 01/19/2023 08:44:21 COVID-19, mRNA, LNP-S, PF, 30 mcg/0.3 mL dose 1 completed DIPTI SANDRA null, [place] - [facility] 01/19/2023 08:44:21 COVID-19, mRNA, LNP-S, PF, 30 mcg/0.3 mL dose, kenyetta-sucrose 2 completed DIPTI SANDRA null, [place] - [facility] 01/19/2023 08:44:21 COVID-19, mRNA, LNP-S, bivalent, PF, 30 mcg/0.3 mL dose 2 completed DIPTI SANDRA null, [place] - [facility] 01/19/2023 08:44:21 pneumococcal polysaccharide PPV23 6 completed DIPTI SANDRA null, [place] - [facility] 01/19/2023 08:44:21 Tdap 2 completed DIPTI SANDRA null, [place] - [facility] 01/19/2023 08:44:21 Pneumococcal conjugate PCV 13 9 completed DIPTI SANDRA null, [place] - [facility] 01/19/2023 08:44:21 Influenza, high-dose, trivalent, PF 8 completed DIPTI SANDRA null, [place] - [facility] 01/19/2023 08:44:21 Past Encounters Encounter ID Performer Location Encounter Start Date Encounter Closed Date Diagnosis/Indication Diagnosis SNOMED-CT Code Diagnosis ICD10 Code Diagnosis Note [id number] [facility] [address] [place] [phone] 03/28/2018 13:37:46 03/28/2018 14:54:02 [id number] Jayy Barrientos DO [facility] [address] [place] [address] 01/19/2023 08:07:52 01/19/2023 09:14:51 Impacted cerumen in right ear [id number] 075527 H61.21 Pt tolerated BL ear lavage wellEar canals inspected and clear post procedureT Ms wnl Patient advised to follow up as needed for worsening symptoms or no improvemen t. Health Concerns Section Related Observation LastModified by Organization Detai ls LastModified Time None Recorded Concern Status LastModified by Organization Details LastModified Time None Recorded Advance Directives Directive None Recorded Payers Insurance Date Sequence Insurance Name Policy Number Policy Batista Covered Member ID Batista Member ID Guarantor Name 01/19/2023 1 [place] [employer] Rebeca Luna [id number] Rebeca Luna 01/19/2023 2 [place] [id number] Rebeca Luna [id number] Rebeca Luna Notes Date Note Type Note Provider Name and Address Organization Details Recorded Time 01/19/2023 text/html Ear problem UCReported bypatient.Notes:[age] yo femalewent for hearing aid eval last week and was told that she has wax in her earsno ear painno QTip useno other c/o Jayy Membrenoit, DO [address], [place], [address], [place] - [facility] 01/19/2023 09:52:05 OBGyn Episode No OBEpisode recorded.
== END 2025-03-29 12:42 | disposition home or self-care (01) ==
LOC: HO.MAMMO 12:41
PROVIDERS: PCP Internal Medicine; Visit Provider Internal Medicine
DX: Z12.31 Encounter for screening mammogram for malignant neoplasm of breast (principal)
CPT/HCPCS: 77063; 77067

== ENCOUNTER → 2025-03-29 13:00 | Outpatient (BNV) | payer MEDICARE, SELFPAY | PROVIDERS: PCP Internal Medicine; Visit Provider Internal Medicine | DX: Z12.31 Encounter for screening mammogram for malignant neoplasm of breast (principal) | CPT/HCPCS: 77063; 77067 ==

== ENCOUNTER 2025-06-07 08:15 | Outpatient (AMB) | payer MEDICARE, SELFPAY ==
--- OUTSIDE RECORDS SUMMARY | 2025-06-07 08:31 | XMS_ITS | Patient Health Record ---
Author Organization [facility] Address [address] [place] [address] Care Team Providers Care Senior Mechanical Estimator Name Role Phone Andrés Austin MD Primary Care Provider Dipak King Unavailable [phone] Allergies Allergen (clinical drug ingredient) Drug/Non Drug Allergy documented on EMR Reaction Allergy Type Onset Date Status doxycycline Doxycycline Unknown Drug Allergy Act saravanan Reason For Referral No Information Medications Medication SIG (Take, Route, Frequency, Duration) Notes Start Date End Date Status Gabapentin 100 MG 1 tablet Orally twic e a day Active Align 4 MG 1 Orally once a day Active Senna S 8.6-50 MG 2 Orally QPM Active metroNIDAZOLE 0.75 % 1 application to affected area Externally Once a day Active Stool Softener 100 MG 1 capsule as neede d Orally Once a day Not-Taking Metamucil 1 2 teaspoons Orally BID Active Correctol 5 MG 2 teaspoons Orally twice a day Not-Taking Aspir-81 81 MG 1 tablet Orally Once a day Active Multi Vitamin/Minerals 1 1 Orally QD Active Dicyclomine HCl 10 MG 1-2 capsules Orall y TID prn abdominal pain/cramps for 30 day(s) 06/20/2016 Active Pantoprazole Sodium 40 MG 1 tablet Orall y Once a day Active Vitamin D 1000 UNIT 1 tablet Orally Once a day Active Calcium 600+D3 600-400 MG-UNIT 1 tablet with food Orally Once a day Active Immunizations Vaccine Route Administration Date Status Comme nts Flu vaccine no Preserv 3 and > Unknown 08/10/2015 Admin istered Problems Problem Type SNOMED Code ICD Code Onset Dates Problem Status W/U Status Risk Notes Problem 94024052 Hypertension (I10) Active confirmed Problem 796853283 Irritable bowel syndrome with constipation (K58.9) Active confirmed Problem 40593639 Constipation, unspecified constipation type (K59.00) Active confirmed Plan Of Treatment No Information Insurance Providers Payer Name Payer Address Payer Phone Subscriber Number Group Number Insured Name Patient Relationship to Insured Coverage Start Date Coverage End Date MEDICARE OF [place] [address] [place] [address] [phone] [id number] NHAN ADAIR Self - patient is the insured [employer] CLAIMS [address] [place] [address] [id number] NHAN ADAIR Self - patient is the insured Medical (General) History Medical History History ICD Code Denies PR,DM,CVA,Lung disease,renal dise ase GERD Neuropathy in She describes approx 5 colon oscopies in the past--last 1 was in approx 2012 at [facility] and was told that it was negative--her very 1st colonoscopy had a colon polyp removed with Dr. Polk Surgical History Surgery Date(Month/Year) appendectomy 194 spinal fusion 1995 & 1996 left knee replacement 2006 right knee replacement 2005 cardiac pacemeker 2007 abdominal surgery due to a b lockage in her intestines---adhesions 12/05/2015 [facility] 1986
--- OUTSIDE RECORDS SUMMARY | 2025-06-07 08:31 | XMS_ITS | Patient Health Record ---
[facility] Address [address] [place] [address] Care Team Providers Care Trust Clerk Name Role Phone Andrés Austin MD Primary Care Provider Juhi Parker Unavailable [phone] Allergies No Known Allergies Reason For Referral No Information Medications Medication SIG (Take, Route, Frequency, Duration) Notes Start Date End Date Status Pantoprazole Sodium 40 MG Oral; Duration: 90 Days Active Sertraline HCl 25 MG Oral; Duration: 90 Days Active Losartan Potassium 25 MG Oral; Duration: 90 Days Active Vitamin D 12/03/2023 Active Senna 12/03/2023 Active Tamsulosin HCl 0.4 MG TAKE 1 CAPSULE BY MOUTH AT BEDTIME. TAKE 1/2 HOUR AFTER THE LAST MEAL OF THE DAY Oral; Duration: 90 Days Active Pramipexole Dihydrochloride 0.25 MG TAKE 1 TABLET BY MOUTH EVERY DAY Oral; Duration: 90 Days Active Acetaminophen 325 MG 1 tablet as needed Orally every 4 hrs 12/03/2023 Active Ciclopirox Olamine 0.77 % 1 application to affected area Externally Twice a day to effected areas on feet; Duration: 30 days Active Calcium + D 12/03/2023 Active Centrum 12/03/2023 Active Eliquis 2.5 MG TAKE 1 TABLET BY BHARAT TH TWICE A DAY Oral; Duration: 90 Days Active Tylenol Active Amoxicillin 500 MG Oral; Duration: 5 Days Active Atorvastatin Calcium 40 MG TAKE 1 TABLET BY MOUTH EVERY DAY Oral; Duration: 90 Days Active Immunizations Vaccine Route Administration Date Status Comme nts Influenza Unknown 07/28/2024 Administered Social History Tobacco Use: Social History Observation [...] ast year? No Points 0 Interpretation Negative Problems Problem Type SNOMED Code ICD Code Onset Dates Problem Status W/U Status Risk Notes Problem Atherosclerosis of [place] artery of both lower extremities, with unspecified presence of clinical manifestation (I70.203) Active confirmed Q7(A), Q8(2B), Q9(1B,2C) Vital Signs Blood pressure diastolic 83 mm Hg 03/18/2025 Height 4 ft 11 in in 03/18/2025 Blood pressure systolic 120 mm Hg 03/18/2025 Weight 125 lbs 03/18/2025 BMI 25.24 kg/m2 03/18/2025 Procedures Procedure Date Ordered Date Performed Result Body Sit e 78239-WRMI SKIN LESIONS, 2 TO 4 09/02/2024 N/A 64620-YPESUOM NAIL, 6 OR MORE 11/30/2024 N/A 29107-OAHD SKIN LESIONS, 2 TO 4 11/30/2024 N/A 18242-NAEGWZY NAIL, 6 OR MORE 03/18/2025 N/A 24639-YZMH SKIN LESIONS, 2 TO 4 03/18/2025 N/A Encounters Encounter Location Date Provider Diagnosis [address] [address] 09/02/2024 Juhi Sue Tinea unguium B35.1 ; Pain in right toe(s) M79.674 ; Pain in left toe(s) M79.675 and Unspecified atherosclerosis of [place] arteries of extremities, bilateral legs I70.[address] [address] 11/30/2024 Juhi Linette Atherosclerosis of [place] artery of both lower extremities, with unspecified presence of clinical manifestation I70.203 ; Tinea unguium B35.1 ; Pain in right toe(s) M79.674 and Pain in left toe(s) M79.675 [facility] [address] [address] 03/18/2025 Juhi Sue Atherosclerosis of [place] artery of both lower extremities, with unspecified presence of clinical manifestation I70.203 ; Tinea unguium B35.1 ; Pain in right toe(s) M79.674 and Pain in left toe(s) M79.675 [facility] [address] [address] 05/31/2025 Juhi Sue Assessments Encounter Date Diagnosis (ICD Code) Assessment Notes Treatment Notes Treatment Clinical Notes Section Notes 09/02/2024 Tinea unguium (ICD-10 - B35.1) 09/02/2024 Pain in right toe(s) (ICD-10 - M79.674) 11/30/2024 Atherosclerosis of [place] artery of both lower extremities, with unspecified presence of clinical manifestation (ICD-10 - I70.203) Q7(A), Q8(2B), Q9(1B,2C) 03/18/2025 Atherosclerosis of [place] artery of both lower extremities, with unspecified presence of clinical manifestation (ICD-10 - I70.203) Q7(A), Q8(2B), Q9(1B,2C) 03/18/2025 Tinea unguium (ICD-10 - B35.1) 11/30/2024 Tinea unguium (ICD-10 - B35.1) 09/02/2024 Pain in left toe(s) (ICD-10 - M79.675) 09/02/2024 Unspecified atherosclerosis of [place] arteries of extremities, bilateral legs (ICD-10 - I70.203) 11/30/2024 Pain in right toe(s) (ICD-10 - M79.674) 03/18/2025 Pain in right toe(s) (ICD-10 - M79.674) 11/30/2024 Pain in left toe(s) (ICD-10 - M79.675) 03/18/2025 Pain in left toe(s) (ICD-10 - M79.675) Plan Of Treatment Pending Test Test Name Order Date 10372-VJSHVDM NAIL, 6 OR MORE 11/30/2024 17864-EZOULBP NAIL, 6 OR MORE 03/18/2025 49900-EDOR SKIN LESIONS, 2 TO 4 03/18/20 25 69597-TCLJ SKIN LESIONS, 2 TO 4 11/30/19 25 51862-CMBK SKIN LESIONS, 2 TO 4 02/17/20 24 39072-SNUI SKIN LESIONS, 2 TO 4 06/01/20 24 77915-IIPV SKIN LESIONS, 2 TO 4 09/02/20 24 18195-HNPTJHXA OF HEMATOMA/FLUID 024 Next Appt Details Provider Name:Juhi Conti ale, 08/16/2025 03:15:00 PM, [address] [place], [address], Insurance Providers Payer Name Payer Address Payer Phone Subscriber Number Group Number Insured Name Patient Relationship to Insured Coverage Start Date Coverage End Date Medicare [employer] [address] [place] [address] [id number] Rebeca Luna Self - [facility] [address] [place] [address] [id number] Rebeca Luna Self - patient is the insured Medical (General) History Medical History History ICD Code Anxiety Back,Hip,and Knee pain Broken bones Diverticulosis Headaches/Migraines Osteoporosis Stroke Measles Chicken pox Joint implants/screws Surgical History Surgery Date(Month/Year) knee replacement L4 & 5 Lowerback
--- OUTSIDE RECORDS SUMMARY | 2025-06-07 08:31 | XMS_ITS | Clinical Summary ---
Author Organization [facility] Facility Address [address] [place] [address] Care Team Providers Care Cloth Tearer Name Role Phone Andrés Austin MD Primary Care Provider [phone] Allergies Active Allergy Reactions Criticality Noted Date Comments Doxycycline Other (see comments) 02/11/2018 Medications calcium carbonate-vitam in D (OSCAL-500) 500-400 MG-UNIT per tablet Take 2 tablets by mouth 1 (one) time each day Active apixaban (ELIQUIS) 2.5 MG tablet Take 2.5 mg by mouth 2 (two) times a day Active Multiple Vitamins-Minera ls (MULTIVITAMINS/ MINERALS ADULT PO) Take 1 tablet by mouth daily Active pantoprazole (PROTONIX) 40 MG EC tablet Take 40 mg by mouth in the morning and 40 mg in the evening. 03/16/2021 Active pramipexole (MIRAPEX) 0.25 MG tablet Take 0.25 mg by mouth daily Active tamsulosin (FLOMAX) 0.4 MG 24 hr capsule Take 0.4 mg by mouth daily Active cholecalciferol (VITAMIN D-3) 25 MCG (1000 UT) capsule Take 1,000 Units by mouth daily Active acetaminophen (TYLENOL) 500 MG tablet Take by mouth every 6 (six) hours if needed for mild pain Active amoxicillin (AMOXIL) 500 MG capsule Take 500 mg by mouth Active polyethylene glycol (GLYCOLAX) 17 GM/SCOOP powder Take 17 g by mouth in the morning. Active Active Problems Problem Noted Date Diagnosed Date Hyponatremia 05/29/2021 Chronic kidney disease, stage 2 (mild) Essential hypertension 10/29/2017 Overview (05/29/2021): Last Assessment & Plan: Blood pressure goal of less than 130/90. She is currently at goal without any oral medications. 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 EKG today shows sinus bradycardia. Anticoagulated with Eliquis 5 mg p.o. twice daily for [id number] score of 4 with adjusted stroke rate of 4 %/year (HTN, age x2, and gender ). Palpitations 04/18/2020 05/29/2021 Overview (05/29/2021): Last Assessment & Plan: Self-reported 5-6 episodes which started on 04/07/2020 of feeling of palpitations which patient is able to count lasting between 19-25 beats. Patient mildly lightheaded during those episodes. Device interrogation did not show any events recorded during the reported palpitations. Possibly related to paroxysmal atrial fibrillation. Patient was recently taken off her diltiazem. He is anticoagulated Constipation 02/13/2018 05/29/2021 Degenerative joint disease i nvolving multiple joints 02/13/2018 05/29/2021 Diverticulosis of colon 02/13/201811/2020 Dizziness and giddiness 02/13/201811/2020 Gastroesophageal reflux disease 02/13/2018 05/29/2021 Headache 02/13/2018 05/29/2021 Low back pain 02/13/2018 05/29/2021 Neuropathy 02/13/2018 05/29/2021 Osteoporosis 02/13/2018 05/29/2021 Overview (05/29/2021): Last Assessment & Plan: This is a patient with osteopenia since 2003. Risk factors for osteoporosis include surgical menopause at the age of 48 of 50., Age, use of proton pump inhibitors and anticoagulants for short period of time. I did not find any other risk factors for osteoporosis based on biochemical evaluation. She is currently on adequate calcium and vitamin D intake. She is on Fosamax possibly for a total period of 12 years after using the medication for 10 years then going on a drug holiday for a few years. Over the last 2 years she has been on Fosamax. Her most recent DEXA scan shows that her bone mineral density is stable and she has had some decrease in bone mineral density but not significant. Until recently she had not had any fractures and I was inclined to continue using Fosamax unless she wished to use Prolia. However the recent fracture has persuaded me to recommend the use of Prolia 60 mg subcutaneous every 6 months because it does have better data and had to have studies compared to Fosamax. The patient is willing to try this. The only drawback with this medication is that she has come to the office every 6 months and this can be you know an issue with transportation etc. in an inconvenience to say the least. However it is a better medication in terms of increasing bone mineral density. I also discussed with the use of anabolic hormones such as Forteo or Tymlos but really I think she would not get this medication approved because it is best used for patients with vertebral compression fractures. So I will go ahead and prescribe Prolia it should be covered by Medicare. Once the medication gets approved we will call the patient to schedule her to come in for the injection she will come back every 6 months from then on. I have to see her at least once a year and I will try to coordinate this visit with those 6 months injection. In the meantime I will give her a follow-up in 1 year. Last Assessment & Plan: This is a patient with osteopenia since 2003. Risk factors for osteoporosis include surgical menopause at the age of 48 of 50., Age, use of proton pump inhibitors and anticoagulants for short period of time. I did not find any other risk factors for osteoporosis based on biochemical evaluation. She is currently on adequate calcium and vitamin D intake. She is on Fosamax possibly for a total period of 12 years after using the medication for 10 years then going on a drug holiday for a few years. Over the last 2 years she has been on Fosamax. Her most recent DEXA scan shows that her bone mineral density is stable and she has had some decrease in bone mineral density but not significant. She has no history of fractures. So I am not inclined to change her prescription of Fosamax since she appears to be doing well. This was a controversy of how long we can use bisphosphonates without developing atypical femur fractures after long-term use. However this has not appeared to be the case with this particular patient actually coming off the medication can actually resulted in fractures. However, if the patient prefers to try a different medication then my recommendation would be to use Prolia 60 mg subcutaneous every 6 months. She will have to come to the office for administration and this is a drop back. She is not really a candidate for anabolic hormones because it will not be approved since she has not had any fractures and she appears to be doing relatively well with Fosamax. Gastro-esophageal reflux dis ease with esophagitis 10/29/2017 05/29/2021 Hyperlipidemia 10/29/2017 05/29/2021 Overview (05/29/2021): Last Assessment & Plan: LDL goal less than 100 secondary to history of hypertension. Recommend repeating lipid panel. Loss of equilibrium 10/29/2017 05/29/20 21 Presence of cardiac pacemaker 10/29/2017 05/29/2021 Overview (05/29/2021): Last Assessment & Plan: Her device was interrogated today by [employer]. Normally functioning device. Please see full report for details. She will have a remote download in 3 months and in office device check in 6 months. Sick sinus syndrome 10/29/2017 05/29/20 21 Overview (05/29/2021): Last Assessment & Plan: Programming device evaluation with iterative adjustment of the implantable device to test the function of the device and select optimal permanent programmed values with analysis review and report. We will see her back in 3-4 months in our device clinic. She'll see Dr. Salinas at some point after that. Syncope and collapse 10/29/2017 021 Immunizations Immunization Administration Dates Next Due H1N1 All Forms 09/27/2010 Influenza Split High Dose Pr eservative Free IM 07/27/2020,07/31/2019,08/18/2018,08/09,08/04/2015,07/16/2014 Influenza TIV (IM) 09/11/2011 Influenza, Unspecified 07/18/2010 Pfizer SARS-COV-2 12/24/2020,12/02/2020 Pneumococcal Conjugate 13-Valent 05/18/2019,09/28 Pneumococcal Polysaccharide 12/05/2015, 8,09/27/2002 TD Preservative Free 03/11/2012,03/28/2002 Zoster 05/18/2019,01/15/2019,10/28/2007 Family History Medical History Relation Comments Diabetes Sibling Relation Status Comments Sibling Social History Tobacco Use Types Packs/Day Years Used Date Smoking Tobacco: Never Smokeless Tobacco: Never Alcohol Use Standard Drinks/Week Comments No 0 (1 standard drink = 0.6 oz pur e alcohol) Comments Unknown Sex and Gender Information Value Date Recorded Sex Assigned at Female 12/21/2021 12:27 PM EST Legal Sex Female 4:54 PM EST Gender Identity Female 12/21/2021 12:27 PM EST Sexual Orientation Not on file Last Filed Vital Signs Vital Sign Reading Time Taken Comments Blood Pressure 124/65 08/26/2023 4:19 PM EDT Pulse 64 08/26/2023 4:19 PM EDT Temperature - - Respiratory Rate - - Oxygen Saturation 97% 08/26/2023 4:19 PM EDT Inhaled Oxygen Concentration - - Weight 58 kg (127 lb 12.8 oz) 07/09/2022 1:27 PM EDT Height 152.4 cm (5') 10/31/2020 12:01 PM EST Body Mass Index 24.96 10/31/2020 12:01 PM EST Plan of Treatment Health Maintenance Due Date Last Done Comments Influenza Vaccine (#1) 2025 3, 08/03/2021, 07/27/2020, Additional history exists Pneumococcal Vaccine: 50+ Years Completed 05/18/2019, 10/18/2016, 12/05/2015, Additional history exists Pneumococcal Vaccine: Peds (0 to 5 Years) and At-Risk Patients (6 to 49 Years) Discontinued 05/18/2019, 10/18/2016, 12/05/2015, Additional history exists Hepatitis B Vaccine Aged Out No longe r eligible based on patient's age to complete this topic Insurance [facility] Medicare [facility] Medicare Care Teams Cloth Tearer Relationship Specialty Start Date End Date Andrés Austin MD [address] [place] [address] PCP - General 11/07/20
[2025-06-07 08:59] VITALS: BP 138/76; PULSE 92; TEMP 36.7; O2SAT 94; BMI 25.9
--- NOTE | 2025-06-07 08:59 | MHC.OFFWIV ---
Intake Vital Signs 06/07/25 08:59 Height 4 ft 11 in Weight 128 lb 2 oz BMI 25.9 BP 138/76 Blood Pressure Location Lt brachial Position Sitting Pulse 92 Pulse Source Pulse Oximeter Temp 98.1 F Temp Source Oral Pulse Oximetry (%) 94 Oxygen Delivery Method Room Air Intake Visit Reasons: EP Lower back/bone pain Patient Tobacco Use Status: Never used Tobacco Chainstitch Elastic Attacher Required: No Is last menstrual period known: No Post menopausal: Yes Patient : No Allergies No Known Allergies (No Known Allergies*) Allergy (Verified 06/07/25 09:08) Do you need a note to return to daycare/school/sports/work: No HPI HPI Comments History of Present Illness Details 89 y/o Female patient who presents to the walk in clinic with c/o Rectal pain and feeling lump hanging from her rectum. Reports occasional Bleeding with bowel movements. She has been having loose stools frequently. She does have some occasional episodes of Constipation. Denies abdominal pain, nausea or vomiting. [facility] Medical History (Updated 06/07/25 @ 09:43 by Gail Burnette NP) Hemorrhoid Social History Household Members: None Housing: House Do you presently have visiting nurse or other home services: No Alcohol intake: never Comment: refusing alarms Patient Tobacco Use Status: Never used Tobacco Patient : No service: No Review of Systems Const All systems reviewed & are unremarkable except as noted in HPI and below Physical Exam Vital Signs: Last Vital Signs Temp 98.1 F 06/07/25 08:59 Pulse 92 06/07/25 08:59 BP 138/76 06/07/25 08:59 Pulse Ox 94 06/07/25 08:59 Oxygen Delivery Method Room Air 06/07/25 08:59 BMI result Body Mass Index 25.9 Const General: no acute distress Nutritional Appearance: well nourished Orientation/consciousness: patient oriented x3 GI Inspection: Yes normal to inspection Palpation (GI): Soft to palpation Auscultation: normal bowel sounds Rectal Exam - Female: normal sphincter tone, External hemorrhoid(s) present and tenderness Neuro General: patient oriented x3, gait normal and moves all extremities Psych Speech and movement: Normal speech and movement present Assessment & Plan Assessment & Plan (1) Hemorrhoid: Code(s): K64.9 - Unspecified hemorrhoids Qualifiers: Hemorrhoid type: unspecified Qualified Code(s): K64.9 - Unspecified hemorrhoids Plan: Exam Positive for External Hemorrhoid, prescribed Hydrocortisone cream. Advised diet high in Fiber. Ordered Colace for constipation. Medications: New docusate sodium (Colace) TAKE IT ONLY NEEDED FOR CONSTIPATION. 100 mg PO DAILY PRN 20 caps 0RF constipation K64.9 - Unspecified hemorrhoids hydrocortisone 2.5% 1 appl VT BID 30 grams 1RF hemorrhoids K64.9 - Unspecified hemorrhoids Coding Level of Care Code Est Pt Level 4 (07073) Diagnoses Hemorrhoids, unspecified hemorrhoid type K64.9 Hemorrhoid type: unspecified Time Spent (min) 20
== END 2025-06-07 09:49 | disposition home or self-care (01) ==
PROVIDERS: PCP Internal Medicine; Visit Provider Nurse Practitioner Family
DX: K64.9 Unspecified hemorrhoids (principal)

== ENCOUNTER → 2025-06-07 08:15 | Outpatient (BNVA) | payer MEDICARE, SELFPAY | PROVIDERS: PCP Internal Medicine; Visit Provider Nurse Practitioner Family | DX: K64.9 Unspecified hemorrhoids (principal) | CPT/HCPCS: 99212 ==

== ENCOUNTER 2025-06-24 08:51 | Outpatient (AMB) | payer MEDICARE, SELFPAY ==
--- OUTSIDE RECORDS SUMMARY | 2024-12-02 10:45 | XMS_ITS ---
Author Organization [facility] Address [address] [place] [id number] Care Team Providers Care Information Security Officer Name Role Phone Andrés Austin MD Primary Care Provider Juhi Parker [phone] Encounters Encounter Location Date Provider Diagnosis [address] [address] 12/02/2024 Juhi Sue Plan Of Treatment Next Appt Details Provider Name:Juhi aguilera, 08/16/2025 03:15:00 PM, [address] [place] [address], [phone], Progress Notes * Rebeca ADAIR KDOB:1935 (89 yo F)Acc No.[id number]:12/02/2024 Progress Note Patient: Rebeca CORONA Provider: Denia Sue DPM :1935 A ge:89 Y S ex:Female Date:12/02/2024 Address:[id number] Pcp:Andrés Austin MD Subjective: * Chief Complaints: * * Medical History: Objective: * Vitals: Assessment: Plan: * Treatment: * Images: * The named appointment provid er may or may not be the originator of this progress note, and it is not deemed complete until electronically signed by the appointment provider. Sign off status: Pending * Provider: Denia Sue DPM Date: 0 12/02/2024 Generated for Pedrito martinez/Sammie/Garcia on: 0 06/24/2025 09:38 AM EDT
--- OUTSIDE RECORDS SUMMARY | 2025-05-31 12:00 | XMS_ITS ---
Author Organization [facility] Address [address] [facility] [place] [address] Care Team Providers Care Retail Key Holder Name Role Phone Andrés Austin MD Primary Care Provider Juhi Parker Unavailable [phone] Allergies No Known Allergies Medications Medication SIG (Take, Route, Frequency, Duration) Notes Start Date End Date Status Pantoprazole Sodium 40 MG Oral; Duration: 90 Days Active Sertraline HCl 25 MG Oral; Duration: 90 Days Active Losartan Potassium 25 MG Oral; Duration: 90 Days Active Vitamin D 12/03/2023 Active Acetaminophen 325 MG 1 tablet as needed Orally every 4 hrs 12/03/2023 Active Ciclopirox Olamine 0.77 % 1 application to affected area Externally Twice a day to effected areas on feet; Duration: 30 days Active Calcium + D 12/03/2023 Active Centrum 12/03/2023 Active Eliquis 2.5 MG TAKE 1 TABLET BY BHARAT TH TWICE A DAY Oral; Duration: 90 Days Active Tylenol Active Senna 12/03/2023 Active Tamsulosin HCl 0.4 MG TAKE 1 CAPSULE BY MOUTH AT BEDTIME. TAKE 1/2 HOUR AFTER THE LAST MEAL OF THE DAY Oral; Duration: 90 Days Active Pramipexole Dihydrochloride 0.25 MG TAKE 1 TABLET BY MOUTH EVERY DAY Oral; Duration: 90 Days Active Amoxicillin 500 MG Oral; Duration: 5 Days Active Atorvastatin Calcium 40 MG TAKE 1 TABLET BY MOUTH EVERY DAY Oral; Duration: 90 Days Active Social History Tobacco Use: Social History Observation Description Date Details (start date - stop date) Never Smoker NA - NA Tobacco use other than smoking: Question Answer Notes Are you an other tobacco user? No Tobacco Control (Standard) Question Answer Notes Tobacco use: Nonsmoker Additional Findings: Tobacco non-user Current no nsmoker AUDIT-C (Standard) Question Answer Notes Did you have a drink containing alcohol in the p ast year? No Points 0 Interpretation Negative Encounters Encounter Location Date Provider Diagnosis [facility] [address] [address] 05/31/2025 Juhi Sue Plan Of Treatment Next Appt Details Provider Name:Juhi Conti ale, 08/16/2025 03:15:00 PM, [address] [place] [address], [phone], Progress Notes * Rebeca ADAIR KDOB:1935 (89 yo F)Acc No.[id number]:05/31/2025 Progress Note Patient: Rebeca CORONA Provider: Denia uSe DPM :1935 A ge:89 Y S ex:Female Date:05/31/2025 Address:[address] [place], [place] [id number] Pcp:Andrés Austin MD Subjective: * Chief Complaints: * * HPI: A t Risk footcare: Pt States Last PCP Visit: D ate 0 10/29/2024 * ROS: G eneral/Constitutional: Nausea d enies. V omiting d enies. H you Thirst a dmits, denies. L oss appetite d enies. C hills d enies. F atigue a dmits, denies. F ever d enies. N ight Sweats d enies. U nexplained weight loss?denies. U nexplained weight gain d enies. O phthalmologic: Blurred vision d enies. R ed eye d enies. ? H EENTM: Dentures d enies. D izziness d enies. G lasses/contacts a dmits. R etinopathy d enies. B lurred/double vision d enies. T MJ?denies. D ischarge/drainage d enies. I mplants d enies. S ore throat d enies. D ental implants d enies. H justus of hearing d enies. D ifficulty chewing/swallowing/speaking d enies. N ose bleeds d enies. S ore mouth d enies. S wollen glands d enies. R espiratory: On Oxygen d enies. P neumonia/pleurisy d enies.?Bronchitis d enies. E mphysema d enies. C oughing d enies. C ough blood?denies. S hortness of breath d enies. W heezing d enies. C ardiovascular: Pacemaker a dmits, denies. M SEAFOOD PREPARER d enies. W PW?denies. C HF d enies. H eart attack d enies. S eptal defect d enies.?Rapid beat d enies. C hest pain d enies. A trial Fib. d enies. M urmur/Palpitations d enies. G astrointestinal: Hemorrhoids d enies. S tomach/Abdominal pain d enies. D ark blood stool d enies. I rritable bowel d enies. C onstipation d enies. D iarrhea d enies. V omiting d enies. H ematology: Swelling d enies. C lots d enies. V aricose Veins d enies. B ruising d enies. B leeding problem d enies. G enitourinary: Blood urine d enies. F requent/Painfu/urination/bladder control d enies. K idney stones d enies. I nfection (UTI) d enies. N ephropathy d enies. s ex trans dis (STD) d enies. P rostate d enies. M usculoskeletal: Hammertoes d enies. B unions d enies. S coliosis/kyphosis d enies. B ack Pain a dmits. M uscle Cramps/ Resting d enies. M uscle cramps / walking d enies, denies. G eneralized aches and pains d enies. W eakness d enies. I nteg.: Kaba d enies. S cars d enies. C orns/calluses?denies. I ngrown nails d enies. P ainful nails d enies. O pen Sores d enies. R ashes d enies. N eurologic: Difficulty sleeping d enies. B ipolar d enies. B rain disorder d enies. N umbness d enies. B alance trouble a dmits. C onfusion d enies. F ainting/blackouts d enies. H eadache d enies. T ingling d enies. T remors a dmits. * Medical History: A nxiety, Back,Hip,and Knee pain, Broken bones, Diverticulosis, Headaches/Migraines, Osteoporosis, Stroke, Measles, Chicken pox, Joint implants/screws. * Surgical History: k nee replacement , L4 & 5 Lowerback . * Hospitalization/Major Diagno stic Procedure: D enies Past Hospitalization. * Family History: M other: . F ather: , diagnosed with Unspecified heart disease. S iblings: stroke. * Social History: T obacco Use: T obacco use other than smoking A re you an other tobacco user? N o Tobacco Control (Standard) T obacco use: N onsmoker A dditional Findings: Tobacco non-user C urrent nonsmoker D rugs/Alcohol: D rugs H ave you used drugs other than those for medical reasons in the past 12 months? N o M iscellaneous: C affeine: yes, frequency:, 2-3 cups per day. Children: yes, 5. Exercise: yes, aerobics, walking. Marital status: . D rug/Alcohol: A CARLITOS-C (Standard) D id you have a drink containing alcohol in the past year? N o P oints 0 I nterpretation N egative * Medications: T aking Ciclopirox Olamine 0.77 % Cream 1 application to affected area Externally Twice a day to effected areas on feet , Taking Tylenol , Taking Eliquis 2.5 MG Tablet TAKE 1 TABLET BY MOUTH TWICE A DAY Oral , Taking Centrum , Taking Calcium + D , Taking Vitamin D , Taking Losartan Potassium 25 MG Tablet Oral , Taking Sertraline HCl 25 MG Tablet Oral , Taking Pantoprazole Sodium 40 MG Tablet Delayed Release Oral , Taking Acetaminophen 325 MG Tablet 1 tablet as needed Orally every 4 hrs , Taking Pramipexole Dihydrochloride 0.25 MG Tablet TAKE 1 TABLET BY MOUTH EVERY DAY Oral , Taking Tamsulosin HCl 0.4 MG Capsule TAKE 1 CAPSULE BY MOUTH AT BEDTIME. TAKE 1/2 HOUR AFTER THE LAST MEAL OF THE DAY Oral , Taking Senna , Taking Atorvastatin Calcium 40 MG Tablet TAKE 1 TABLET BY MOUTH EVERY DAY Oral , Taking Amoxicillin 500 MG Capsule Oral , Medication List reviewed and reconciled with the patient * Allergies: N .K.D.A. Objective: * Vitals: Assessment: Plan: * Treatment: * Images: * The named appointment provid er may or may not be the originator of this progress note, and it is not deemed complete until electronically signed by the appointment provider. Sign off status: Pending * Provider: Denia Sue DPM Date: 0 05/31/2025 Generated for Pedrito martinez/Sammie/Garcia on: 0 06/24/2025 09:38 AM EDT History and Physical Notes * HPI (History of Present Illness) Category Sub-Category Detail Notes Category Not es At Risk footcare Pt States Last PCP Visit: Date: 5
[2025-06-24 08:59] VITALS: BP 102/60; PULSE 75; TEMP 36.5; O2SAT 97; BMI 25.9
--- NOTE | 2025-06-24 08:59 | AM.OFFWIN_ITS ---
Intake Vital Signs 06/24/25 08:59 Height 4 ft 11 in Weight 128 lb BMI 25.9 BP 102/60 Blood Pressure Location Lt brachial Position Sitting Pulse 75 Pulse Source Pulse Oximeter Temp 97.7 F Temp Source Oral Pulse Oximetry (%) 97 Oxygen Delivery Method Room Air Intake Visit Reasons: upset stomach Intake Note: pt presents with concern for excessive bowel movements with mild cramping for a few days- not diarrhea Patient Tobacco Use Status: Never used Tobacco Allergies No Known Allergies (No Known Allergies*) Allergy (Verified 06/24/25 09:05) Do you need a note to return to daycare/school/sports/work: No HPI HPI Comments History of Present Illness Details 89 y/o Female patient who presents to the [facility] with c/o Abdominal pain associated with frequent Bowel movements. She reports that symptoms started this morning and the Stools were Formed. Denies fevers, chills, Nausea and vomiting. PFSH Medical History (Updated 06/24/25 @ 09:25 by Gail Burnette NP) Gastritis Hemorrhoid Social History Household Members: None Housing: House Do you presently have visiting nurse or other home services: No Alcohol intake: never Comment: refusing alarms Patient Tobacco Use Status: Never used Tobacco service: No Review of Systems Const All systems reviewed & are unremarkable except as noted in HPI and below Physical Exam Vital Signs: Last Vital Signs Temp 97.7 F 06/24/25 08:59 Pulse 75 06/24/25 08:59 BP 102/60 06/24/25 08:59 Pulse Ox 97 06/24/25 08:59 Oxygen Delivery Method Room Air 06/24/25 08:59 BMI result Body Mass Index 25.9 Const General: no acute distress Nutritional Appearance: well nourished Orientation/consciousness: patient oriented x3 Resp Effort & Inspection: normal respiratory effort Cardio Heart sounds: S1 normal heart sound present and S2 normal heart sound present GI Palpation (GI): Soft to palpation, not firm, Tenderness to palpation present (GI), no guarding, not rigid and No hepatosplenomegaly present Auscultation: normal bowel sounds Neuro General: patient oriented x3 Assessment & Plan Assessment & Plan (1) Gastritis: Code(s): K29.70 - Gastritis, unspecified, without bleeding Qualifiers: Gastritis type: other gastritis Chronicity: acute Gastritis bleeding: without bleeding Qualified Code(s): K29.00 - Acute gastritis without bleeding Plan: Probably Viral Ordered Zofran Advised to hydrate well with fluids Advised BLAND Medications: New ondansetron 8 mg PO Q8H 20 tabs 0RF K29.00 - Acute gastritis without bleeding famotidine 20 mg PO DAILY 14 tabs 0RF K29.00 - Acute gastritis without bleeding Coding Level of Care Code Est Pt Level 4 (39219) Diagnoses Other acute gastritis without hemorrhage K29.00 Gastritis type: other gastritis Chronicity: acute Gastritis bleeding: without bleeding Time Spent (min) 20
--- OUTSIDE RECORDS SUMMARY | 2025-06-24 09:39 | XMS_ITS | Patient Health Record ---
Author Organization [facility] Address [address] [place] [address] Care Team Providers Care Paper Bag Making Machinist Name Role Phone Andrés Austin MD Primary Care Provider Dipak King Unavailable [phone] Allergies Allergen (clinical drug ingredient) Drug/Non Drug [...] Problem Status W/U Status Risk Notes Problem [id number] Hypertension (I10) Active confirmed Problem [id number] Irritable bowel syndrome with constipation (K58.9) Active confirmed Problem [id number] Constipation, unspecified constipation type (K59.00) Active confirmed Plan Of Treatment No Information Insurance Providers Payer Name Payer Address Payer Phone Subscriber Number Group Number Insured Name Patient Relationship to Insured Coverage Start Date Coverage End Date MEDICARE OF [place] [address] [place] [address] [phone] [id number] NHAN ADAIR Self - patient is the insured [employer] CLAIM[employer] [address] [place] [address] [id number] NHAN ADAIR Self - patient is the insured Medical (General) History Medical History History ICD Code Denies FL,DM,CVA,Lung disease,renal dise ase GERD Neuropathy in She describes approx 5 colon oscopies in the past--last 1 was in approx 2012 at [facility] and was told that it was negative--her very 1st colonoscopy had a colon polyp removed with Dr. Polk Surgical History Surgery Date(Month/Year) appendectomy 194 spinal fusion 1995 & 1996 left knee replacement 2006 right knee replacement 2005 cardiac pacemeker 2007 abdominal surgery due to a b lockage in her intestines---adhesions 12/05/2015 [facility] 1986
--- OUTSIDE RECORDS SUMMARY | 2025-06-24 09:39 | XMS_ITS | Patient Health Record ---
[facility] Address [address] [place] [address] Care Team Providers Care Teacher Of The Handicapped Name Role Phone Andrés Austin MD Primary Care Provider Juhi Parker Unavailable [phone] Allergies No Known Allergies Reason For Referral [...] W/U Status Risk Notes Problem Atherosclerosis of kotlik artery of both lower extremities, with unspecified presence of clinical manifestation (I70.203) Active confirmed Q7(A), Q8(2B), Q9(1B,2C) Vital Signs Blood pressure diastolic 83 mm Hg 03/18/2025 Height 4 ft 11 in in 03/18/2025 Blood pressure systolic 120 mm Hg 03/18/2025 Weight 125 lbs 03/18/2025 BMI 25.24 kg/m2 03/18/2025 Procedures Procedure Date Ordered Date Performed Result Body Sit e 04066-DOKD SKIN LESIONS, 2 TO 4 09/02/2024 N/A 61633-WARLCED NAIL, 6 OR MORE 11/30/2024 N/A 62610-PAIW SKIN LESIONS, 2 TO 4 11/30/2024 N/A 45571-PGLLRAX NAIL, 6 OR MORE 03/18/2025 N/A 17194-ICDB SKIN LESIONS, 2 TO 4 03/18/2025 N/A Encounters Encounter Location Date Provider Diagnosis [address] [address] 09/02/2024 Juhi Sue Tinea unguium B35.1 ; Pain in right toe(s) M79.674 ; Pain in left toe(s) M79.675 and Unspecified atherosclerosis of kotlik arteries of extremities, bilateral legs I70.[address] [address] 11/30/2024 Juhi Linette Atherosclerosis of kotlik artery of both lower extremities, with unspecified presence of clinical manifestation I70.203 ; Tinea unguium B35.1 ; Pain in right toe(s) M79.674 and Pain in left toe(s) M79.675 [facility] [address] [address] 03/18/2025 Juhi Sue Atherosclerosis of kotlik artery of both lower extremities, with unspecified presence of clinical manifestation I70.203 ; Tinea unguium B35.1 ; Pain in right toe(s) M79.674 and Pain in left toe(s) M79.675 [facility] [address] [address] 05/31/2025 Juhi Sue Assessments Encounter Date Diagnosis (ICD Code) Assessment Notes Treatment Notes Treatment Clinical Notes Section Notes 09/02/2024 Tinea unguium (ICD-10 - B35.1) 09/02/2024 Pain in right toe(s) (ICD-10 - M79.674) 11/30/2024 Atherosclerosis of kotlik artery of both lower extremities, with unspecified presence of clinical manifestation (ICD-10 - I70.203) Q7(A), Q8(2B), Q9(1B,2C) 03/18/2025 Atherosclerosis of kotlik artery of both lower extremities, with unspecified presence of clinical manifestation (ICD-10 - I70.203) Q7(A), Q8(2B), Q9(1B,2C) 03/18/2025 Tinea unguium (ICD-10 - B35.1) 11/30/2024 Tinea unguium (ICD-10 - B35.1) 09/02/2024 Pain in left toe(s) (ICD-10 - M79.675) 09/02/2024 Unspecified atherosclerosis of kotlik arteries of extremities, bilateral legs (ICD-10 - I70.203) 11/30/2024 Pain in right toe(s) (ICD-10 - M79.674) 03/18/2025 Pain in right toe(s) (ICD-10 - M79.674) 11/30/2024 Pain in left toe(s) (ICD-10 - M79.675) 03/18/2025 Pain in left toe(s) (ICD-10 - M79.675) Plan Of Treatment Pending Test Test Name Order Date 31450-HXAOIFW NAIL, 6 OR MORE 11/30/2024 23111-NTZNNQN NAIL, 6 OR MORE 03/18/2025 23290-RUIV SKIN LESIONS, 2 TO 4 03/18/20 25 94204-VIAL SKIN LESIONS, 2 TO 4 11/30/19 25 47293-JVUO SKIN LESIONS, 2 TO 4 02/17/20 24 28602-AQGE SKIN LESIONS, 2 TO 4 06/01/20 24 08505-EFSG SKIN LESIONS, 2 TO 4 09/02/20 24 28592-SDACEUBO OF HEMATOMA/FLUID 024 Next Appt Details Provider Name:Juhi Conti ale, 08/16/2025 03:15:00 PM, [address] [place], [address], Insurance Providers Payer Name Payer Address Payer Phone Subscriber Number Group Number Insured Name Patient Relationship to Insured Coverage Start Date Coverage End Date Medicare [employer] [address] [place] [address] [id number] Rebeca Luna Self - patient is the insured [facility] [address] [place] [address] [phone] [id number] Rebeca Luna Self - patient is the insured Medical (General) History Medical History History ICD Code Anxiety Back,Hip,and Knee pain Broken bones Diverticulosis Headaches/Migraines Osteoporosis Stroke Measles Chicken pox Joint implants/screws Surgical History Surgery Date(Month/Year) knee replacement L4 & 5 Lowerback
--- OUTSIDE RECORDS SUMMARY | 2025-06-24 09:39 | XMS_ITS | Clinical Summary ---
Author Organization [facility] Facility Address [address] [place] [address] Care Team Providers Care Cheerleading Coach Name Role Phone Andrés Austin MD Primary Care Provider [phone] Allergies Active Allergy Reactions Criticality Noted Date [...] Eliquis 5 mg p.o. twice daily for [id number] score of 4 with adjusted stroke rate [...] patient's age to complete this topic Insurance [facility] Medicare [facility] Medicare Care Teams Cheerleading Coach Relationship Specialty Start Date End Date Andrés Austin MD [address] [place] [address] PCP - General 11/07/20
== END 2025-06-24 09:33 | disposition home or self-care (01) ==
PROVIDERS: PCP Internal Medicine; Visit Provider Nurse Practitioner Family
DX: K29.00 Acute gastritis without bleeding (principal)

== ENCOUNTER → 2025-06-24 08:51 | Outpatient (BNVA) | payer MEDICARE, SELFPAY | PROVIDERS: PCP Internal Medicine; Visit Provider Nurse Practitioner Family | DX: K29.00 Acute gastritis without bleeding (principal) | CPT/HCPCS: 99212 ==